=== PATIENT | female | born 1985 | race Caucasian/White ===

== ENCOUNTER 2018-04-10 01:25 | Emergency (ER) | payer MEDICAID, SELFPAY ==
[2018-04-10] MEDS ORDERED: BUPIVACAINE 0.5% PF 10 ML VIAL ONE (02:38)
[2018-04-10] MEDS ORDERED: LIDOCAINE 1% W/EPI 1:100,000 MDV 50 ML VIAL ONE (02:38)
[2018-04-10] MEDS ORDERED: NA CHLORIDE 0.9% 1,000 ML ONE (02:59)
[2018-04-10] MEDS ORDERED: CEFAZOLIN/SWI 1gm 1 GM/10 ML SYR ONE (03:06)
[2018-04-10 03:54] LABS: Urine Blood NEGATIVE (NEG); Urine Glucose 2+ (NEG); Urine Protein NEGATIVE (NEG); Urine Specific Gravity <1.005 (1.005-1.030); Urine pH 5.5 (5.0-7.0)
[2018-04-10] MEDS ORDERED: DOXYCYCLINE 100 MG CAP PO ONE (03:58)
--- NOTE | 2018-04-10 04:01 | EDPHYS ---
Physician Documentation [facility] Name: Diane Dacosta Age: 32 yrs Sex: Female : 1985 Arrival Date: 04/10/2018 Time: 01:26 Bed 20 Private MD: ED Physician Michael Timmons HPI: 04/10 02:30 This 32 yrs old Female presents to ER via Ambulatory with complaints of Foot cp Injury - fishhook on both. 02:30 The patient or guardian reports the patient has a suspected foreign body, of the cp anterior aspect left ankle and right Achilles . The reported likely foreign body is a fishhook. Onset: The symptoms/episode began/occurred just prior to arrival. 02:30 Current symptoms: pain, in the area of the foreign body. Treatment Prior to Arrival: cp none. 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 - Social history:: Smoking status: Patient uses tobacco products, smokes one-half pack cigarettes per day. - Ebola Screening: : Patient negative for fever greater than or equal to 101.5 degrees Fahrenheit, and additional compatible Ebola Virus Disease symptoms Patient denies exposure to infectious person Patient denies travel to an Ebola-affected area in the 21 days before illness onset. ROS: 02:35 Constitutional: Negative for body aches, chills, fever, poor PO intake. cp 02:35 Eyes: Negative for injury, pain, redness, and discharge. cp 02:35 Neck: Negative for pain with movement, pain at rest, stiffness. 02:35 Cardiovascular: Negative for chest pain, palpitations. 02:35 Respiratory: Negative for cough, wheezing. 02:35 Abdomen/GI: Negative for abdominal pain, vomiting, diarrhea, constipation. 02:35 Back: Negative for pain at rest, pain with movement. 02:35 Skin: Positive for of the right Achilles and anterior aspect of left ankle, fishhook in each lower extremity. 02:35 Neuro: Negative for altered mental status, headache, weakness. 02:35 All other systems are negative. Exam: 02:42 Constitutional: The patient appears alert, awake, non-toxic, well developed, well cp nourished, uncomfortable. 02:42 Head/Face: Normocephalic, atraumatic. cp 02:42 Eyes: Periorbital structures: appear normal, Conjunctiva: normal, no exudate, no injection, Lids and lashes: appear normal, bilaterally. 02:42 ENT: External ear(s): are unremarkable, Nose: is normal, Mouth: is normal, Posterior pharynx: is normal, airway is patent. 02:42 Chest/axilla: Inspection: normal. 02:42 Cardiovascular: Rate: tachycardic, Rhythm: regular. 02:42 Respiratory: the patient does not display signs of respiratory distress, Respirations: normal, no use of accessory muscles, no retractions, no splinting, no tachypnea. 02:42 Abdomen/GI: Exam negative for discomfort, distension, guarding, Inspection: abdomen appears normal. 02:42 Skin: noted large barbed fishhook times 2 located anterior aspect left ankle and right Achilles . Vital Signs: 01:30 BP 147 / 104; Pulse 138; Resp 95; Temp 98.6(O); Pulse Ox 96% on R/A; Weight 90.72 kg fc (R); Height 5 ft. 5 in. (165.10 cm) (R); Pain 10/10; 03:18 BP 121 / 99; Pulse 116; Resp 17 S; Pulse Ox 96% on R/A; jd3 01:30 Body Mass Index 33.28 (90.72 kg, 165.10 cm) Procedures: 03:32 Foreign Body Removal: a fishhook, from the right Achilles, by 18 gauge needle and cp manipulation. The patient tolerated the removal well. 03:33 Foreign Body Removal: a fishhook, from the left anterior aspect of left ankle, by push cp through. The patient tolerated the removal well. Performed wounds cleaned, irrigated and dressed by nursing staff. MDM: 02:27 Patient medically screened. cp 04:00 Data reviewed: vital signs, nurses notes, and as a result, I will discharge patient. cp 04:00 Counseling: I had a detailed discussion with the patient and/or guardian regarding: the cp historical points, exam findings, and any diagnostic results supporting the discharge/admit diagnosis, the need for outpatient follow up, a family practitioner, to return to the emergency department if symptoms worsen or persist or if there are any questions or concerns that arise at home. Response to treatment: the patient's symptoms have markedly improved after treatment, and as a result, I will discharge patient. Special discussion: I discussed in detail with the patient the higher chance of wound infection based on his presenting history. 04/10 02:46 Order name: Urine Dipstick--Ancillary (enter results); Complete Time: 04:01 rg2 04/10 04:01 Interpretation: Normal except: UGLUC 2+. cp 04/10 02:54 Order name: Test, Serum; Complete Time: 03:48 jd3 04/10 02:30 Order name: Urine Dipstick-Ancillary (obtain specimen); Complete Time: 02:45 cp 04/10 02:30 Order name: Urine Test (obtain specimen); Complete Time: 02:44 cp 04/10 02:31 Order name: Dressing - Wound; Complete Time: 03:17 cp 04/10 02:31 Order name: Gloves, Sterile; Complete Time: 02:45 cp 04/10 02:31 Order name: Setup Suture Tray; Complete Time: 02:45 cp 04/10 02:31 Order name: Misc. Order: betadine and guaze; Complete Time: 02:34 cp 04/10 02:54 Order name: IV; Complete Time: 03:02 jd3 Administered Medications: 02:54 Drug: Lidocaine-Epinephrine -1%: (1:100,000) 10 ml {Note: given by Shahab EMMANUEL} jd3 Volume: 20 ml; Route: Infiltration; 02:55 Drug: Marcaine (0.5 %) 5 ml {Note: given by Shahab EMMANUEL} Volume: 10 ml; Route: jd3 Infiltration; 03:02 Drug: NS 0.9% 1000 ml Route: IV; Rate: 1 bolus; Site: right antecubital; jd3 03:58 Follow up: Response: No adverse reaction; IV Status: Completed infusion; IV Intake: jd3 1000ml 03:08 Drug: Ancef 1 grams Route: IVPB; Site: right antecubital; jd3 03:17 Follow up: Response: No adverse reaction; IV Status: Completed infusion jd3 03:58 Drug: Doxycycline 200 mg Route: PO; jd3 04:13 Follow up: Response: No adverse reaction jd3 04:05 Drug: Tetanus-Diphtheria Toxoid Adult 0.5 ml {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 Exp: jd3 06/16/2020. Lot #: [id number]. } Route: IM; Site: left deltoid; 04:16 Follow up: Response: No adverse reaction jd3 Disposition: 04/10/18 04:00 Discharged to Home. Impression: Encounter for Removal of [place] from Left Ankle and Right Achilles. - Condition is Stable. - Discharge Instructions: Fish Hook Removal. - Prescriptions for Tylenol- Codeine #3 300-30 mg Oral Tablet - take 2 tablets by ORAL route every 6 hours As needed; 20 tablet. Doxycycline Monohydrate 100 mg Oral Tablet - take 1 tablet by ORAL route every 12 hours for 10 days; 20 tablet. - Medication Reconciliation Form, Thank You Letter, Antibiotic Education, Prescription Opioid Use form. - Follow up: Private Physician; When: 48 Hours; Reason: Wound Recheck. - Problem is new. - Symptoms have improved. Addendum: 04/11/2018 13:23 Co-signature as Attending Physician, Michael Timmons MD Available for consultation at p s1 all times. . Signatures: Dispatcher [employer] [facility] Marlen Vera RN RN Shahab Kuo PA PA cp Davies, Jonathon, RN RN jd3 Singer, Phillip, MD MD ps1 Corrections: (The following items were deleted from the chart) 04/10 02:54 02:54 TEST, SERUM+[id number].LAB.BRZ ordered. [facility] EDID 04:16 04:00 04/10/2018 04:00 Discharged to Home. Impression: Encounter for Removal of jd3 [place] from Left Ankle and Right Achilles. Condition is Stable. Discharge Instructions: Fish Hook Removal. Prescriptions for Tylenol-Codeine #3 300-30 mg Oral Tablet - take 2 tablets by ORAL route every 6 hours As needed; 20 tablet, Doxycycline Monohydrate 100 mg Oral Tablet - take 1 tablet by ORAL route every 12 hours for 10 days; 20 tablet. and Forms are Medication Reconciliation Form, Thank You Letter, Antibiotic Education, Prescription Opioid Use. Follow up: Private Physician; When: 48 Hours; Reason: Wound Recheck. Problem is new. Symptoms have improved. cp
--- NOTE | 2018-04-10 04:01 | ER ---
Nurse's Notes [facility] Name: Diane Dacosta Age: 32 yrs Sex: Female : 1985 Arrival Date: 04/10/2018 Time: 01:26 Bed 20 Private MD: Diagnosis: Encounter for Removal of [place] from Left Ankle and Right Achilles Presentation: 04/10 01:30 Presenting complaint: Patient states: that she was fishing and got tangled in the line. fc When in got pulled the hooks got her. She has one on the anterior lower left leg and one to posterior right just above the heel. Transition of care: patient was not received from another setting of care. Onset of symptoms was April 10, 2018 at 01:15. Risk Assessment: Do you want to hurt yourself or someone else? Patient reports no desire to harm self or others. Initial Sepsis Screen: Does the patient meet any 2 criteria? HR > 90 bpm. Yes Does the patient have a suspected source of infection? No. Patient's initial sepsis screen is negative. Care prior to arrival: None. 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 - Social history:: Smoking status: Patient uses tobacco products, smokes one-half pack cigarettes per day. - Ebola Screening: : Patient negative for fever greater than or equal to 101.5 degrees Fahrenheit, and additional compatible Ebola Virus Disease symptoms Patient denies exposure to infectious person Patient denies travel to an Ebola-affected area in the 21 days before illness onset. Screenin:48 Abuse screen: Denies threats or abuse. Nutritional screening: No deficits noted. fc Tuberculosis screening: No symptoms or risk factors identified. Fall Risk None identified. Assessment: 01:50 General: Appears uncomfortable, Behavior is cooperative, anxious. Pain: Complains of jd3 pain in right Achilles and anterior aspect of left ankle Pain currently is 10 out of 10 on a pain scale. Quality of pain is described as sharp, Aggravated by weight bearing. Neuro: Level of Consciousness is awake, alert, obeys commands, Oriented to person, place, time, situation. Cardiovascular: Heart tones S1 S2 present Capillary refill < 3 seconds Patient's skin is warm and dry. Rhythm is sinus tachycardia. Respiratory: Airway is patent Respiratory effort is even, unlabored, Respiratory pattern is regular, symmetrical, Breath sounds are clear bilaterally. GI: Abdomen is round Patient currently denies nausea, vomiting. : No signs and/or symptoms were reported regarding the genitourinary system. EENT: No signs and/or symptoms were reported regarding the EENT system. Derm: Skin is intact, Skin is dry, Skin is normal, Skin temperature is warm. Musculoskeletal: Circulation, motion, and sensation intact. Range of motion: intact in all extremities. Injury Description: Puncture sustained to right Achilles and anterior aspect of left ankle is 2 fishing hooks embedded in pt. 02:50 Reassessment: Patient appears in no apparent distress at this time. Patient and/or jd3 family updated on plan of care and expected duration. Pain level reassessed. Patient is alert, oriented x 3, equal unlabored respirations, skin warm/dry/pink. 03:20 Reassessment: Patient appears in no apparent distress at this time. Patient and/or jd3 family updated on plan of care and expected duration. Pain level reassessed. Patient is alert, oriented x 3, equal unlabored respirations, skin warm/dry/pink. 04:15 Reassessment: Patient appears in no apparent distress at this time. Patient and/or jd3 family updated on plan of care and expected duration. Pain level reassessed. Patient is alert, oriented x 3, equal unlabored respirations, skin warm/dry/pink. pt reported understanding of discharge instructions, even and steady gait upon discharge. Vital Signs: 01:30 BP 147 / 104; Pulse 138; Resp 95; Temp 98.6(O); Pulse Ox 96% on R/A; Weight 90.72 kg fc (R); Height 5 ft. 5 in. (165.10 cm) (R); Pain 10/10; 03:18 BP 121 / 99; Pulse 116; Resp 17 S; Pulse Ox 96% on R/A; jd3 01:30 Body Mass Index 33.28 (90.72 kg, 165.10 cm) fc ED Course: 01:26 Patient arrived in ED. am2 01:30 Arm band placed on Patient placed in an exam room, on a stretcher. 01:42 Jovany Parekh RN is Primary Nurse. jd3 01:47 Triage completed. 01:48 Patient has correct armband on for positive identification. Bed in low position. Call light in reach. 01:48 No provider procedures requiring assistance completed. fc 02:13 Wound care: to puncture located on right Achilles and anterior aspect of left ankle was jd3 cleaned with with saline poured over wounds to wash off sand and dried blood., Patient tolerated well. 02:27 Shahab Conley PA is PHCP. cp 02:27 Michael Tmimons MD is Attending Physician. cp 03:05 Inserted saline lock: 22 gauge in right antecubital area, using aseptic technique. ea Blood collected. 04:15 IV discontinued, intact, bleeding controlled, No redness/swelling at site. Pressure jd3 dressing applied. Administered Medications: 02:54 Drug: Lidocaine-Epinephrine -1%: (1:100,000) 10 ml {Note: given by Shahab JO.} jd3 Volume: 20 ml; Route: Infiltration; 02:55 Drug: Marcaine (0.5 %) 5 ml {Note: given by Shahab JO.} Volume: 10 ml; Route: jd3 Infiltration; 03:02 Drug: NS 0.9% 1000 ml Route: IV; Rate: 1 bolus; Site: right antecubital; jd3 03:58 Follow up: Response: No adverse reaction; IV Status: Completed infusion; IV Intake: jd3 1000ml 03:08 Drug: Ancef 1 grams Route: IVPB; Site: right antecubital; jd3 03:17 Follow up: Response: No adverse reaction; IV Status: Completed infusion jd3 03:58 Drug: Doxycycline 200 mg Route: PO; jd3 04:13 Follow up: Response: No adverse reaction jd3 04:05 Drug: Tetanus-Diphtheria Toxoid Adult 0.5 ml {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 Exp: jd3 06/16/2020. Lot #: [id number]. } Route: IM; Site: left deltoid; 04:16 Follow up: Response: No adverse reaction jd3 Intake: 03:58 IV: 1000ml; Total: 1000ml. jd3 Outcome: 04:00 Discharge ordered by . cp 04:15 Discharged to home ambulatory, with family. jd3 04:15 Condition: stable 04:15 Discharge instructions given to patient, Instructed on discharge instructions, follow up and referral plans. medication usage, Demonstrated understanding of instructions, follow-up care, medications, Prescriptions given X 2. 04:16 Patient left the ED. jd3 Signatures: Marlen Vera RN RN Shahab Kuo PA PA cp Moreno, Amanda am2 Antunez, Elena, RN RN Jovany Woods RN RN jyarely Corrections: (The following items were deleted from the chart) 04:13 04:12 Tetanus-Diphtheria Toxoid Adult 0.5 ml IM in left deltoid Application Development Director: [employer] jd3 Biologic Lot: [id number] Exp: 06/16/2020 jd3
[2018-04-10] MEDS ORDERED: TETANUS & DIPHTHERIA TOX,ADULT 0.5 ML VIAL ONE (04:05)
== END 2018-04-10 04:16 | disposition home or self-care (01) ==
LOC: ER 01:25
PROC: 0JCQ0ZZ Extirpation of Matter from Right Foot Subcutaneous Tissue and Fascia, Open Approach (ICD-10-PCS; principal; 2018-04-10)
PROC: 0JCR3ZZ Extirpation of Matter from Left Foot Subcutaneous Tissue and Fascia, Percutaneous Approach (ICD-10-PCS; 2018-04-10)
DX: S91.042A Puncture wound with foreign body, left ankle, initial encounter (principal); S91.041A Puncture wound with foreign body, right ankle, initial encounter; E11.9 Type 2 diabetes mellitus without complications; F17.210 Nicotine dependence, cigarettes, uncomplicated; W26.8XXA Contact with other sharp object(s), not elsewhere classified, initial encounter; Y93.89 Activity, other specified; Y92.9 Unspecified place or not applicable; Y99.9 Unspecified external cause status; Z23 Encounter for immunization
CPT/HCPCS: 36415; 81003; 84703; 90714; 96361; 96374; 99284; J0690; J7030

== ENCOUNTER 2024-11-23 17:45 | Emergency (ER) | payer BC, SELFPAY ==
--- OUTSIDE RECORDS SUMMARY | 2024-11-23 17:52 | XMS REPORT | Continuity of Care Document ---
Author Name Unknown Address [address] [facility] [address] [place] [address] [facility] Address [address] [facility] [address] [place] [address] Care Team Providers Care Care Asst Name Role Phone Juliet Guevara MD Primary Care Physician [phone] Juliet Guevara MD Attending Clinician + [phone] KYLIE BENTLEY Attending Clinician Unavailable Kylie Mays Attending Clinician +[phone] Akash Paz MD Attending Clinician + [phone] Juliet Guevara MD Attending Clinician + Akash Paz MD Attending Clinician + JULIET GUEVARA Attending Clinician Unavailable Kylie Mays Attending Clinician [phone] Britney Schumacher MD Attending Clinician +[phone] Corby Collins MD Attending Clinician +[phone] BRITNEY SCHUMACHER Attending Clinician Unavailable Lin Rivera MD Attending Clinician + [phone] Lab, Ang - Db Attending Clinician Unavailable Katiana Castle MD Attending Clinician [phone] Unknown, Attending Attending Clinician Unavailab KATIANA Park Attending Clinician Unavailable Jade Walsh Attending Clinician +[phone] JADE AHUMADA Attending Clinician Unavailable LIN RIVERA Attending Clinician Unaclaudia lopez Doctor Unassigned, Blende Attending Clinician CORBY Abdi Attending Clinician Unavailabl e Alison MA, Moriah L Attending Clinician Unavailab SERGIO Gusman Attending Clinician Unavail able NICOLETTE FITCH Attending Clinician Unavailable AME LCUAS Attending Clinician Unavailable Ame Lucas OD Attending Clinician [phone] Radha Paredes LVN Attending Clinician Unaclaudia Baker [facility] Attending Clinician + [facility] Attending Clinician Unavailable Dago Lopez MD Attending Clinician [phone] DAGO LOPEZ Attending Clinician Unavailable CHRISTINE ANDERSON Attending Clinician Unavailable Christine Anderson MD Attending Clinician [phone] Matt Kaur DNP Attending Clinician +[phone] FADI HUBBARD Attending Clinician Unavailab Fadi Bass Attending Clinician + [phone] CECELIA WEBB Attending Clinician Unavailable Cecelia Webb MD Attending Clinician [phone] [facility] Attending Clinician Unavailable DOMINGO YOUSIF Attending Clinician Unavailable Domingo Chapman Attending Clinician + [phone] MIKEY VIDAL Attending Clinician Unavail able Mikey Vidal MD Attending Clinician [phone] Faculty, [facility] Attending Clinician UnaSAGE Rivas Attending Clinician Unavailable Joey Vanessa MD Attending Clinician +[phone] JOEY VANESSA Attending Clinician Unavailable TAWANA CERVANTES Attending Clinician Unavailab Tawana Hoover DO Attending Clinician + [phone] RHONDA VASQUEZ Attending Clinician Unavailable Vasquez PAC, Rhonda S Attending Clinician +[phone] REJI CASTELLANOS Attending Clinician Unavailable MARLINE CERVANTES Attending Clinician UnavailBERNY Del Valle Attending Clinician Unavailable Breny Woodard Attending Clinician +[phone] Reji Castellanos MD Attending Clinician +[phone] BRITNEY SCHUMACHER Admitting Clinician Unavailable CHRISTINE ANDERSON Admitting Clinician Unavailable Christine Anderson MD Admitting Clinician +[phone] DOMINGO YOUSIF Admitting Clinician Unavailable REJI CASTELLANOS Admitting Clinician Unavailable Payers Payer Name Policy Type Policy Number Effective Date Expirati on Date Source MEDICAID PENDING PENDING 2021 00:00:00 [place] [id number] 2021 00:00:00 [facility] [id number] 2019 00:00:00 Problems Condition Name Condition Details Condition Category Status Onset Date Resolution Date Last Treatment Date Treating Clinician Comments Source Anxiety Anxiety Problem Active 2- 00:00: 00 [facility] Dysmenorrh ea Dysmenorrh ea Problem Active 2- 00:00: 00 [facility] Menometror rhagia Menometror rhagia Problem Active - 00:00: 00 [facility] Heartburn Heartburn Problem Active - 00:00: 00 [facility] Iron deficiency anemia due to blood loss Iron Deficiency Anemia Due to Blood Loss Problem Active 2- 00:00: 00 [facility] Uterine leiomyoma Uterine Leiomyoma Problem Active 2-05 00:00: 00 [facility] Acquired hypothyroi dism Acquired Hypothyroi dism Problem Active 2-05 00:00: 00 [facility] Hypothyroi dism Hypothyroi dism Problem Active 2-05 00:00: 00 [facility] Diabetes mellitus Diabetes Mellitus Problem Active 2-05 00:00: 00 [facility] Type 2 diabetes mellitus Type 2 Diabetes Mellitus Problem Active 2-05 00:00: 00 [facility] Upper respirator y tract infection, unspecifie d type Upper respirator y tract infection, unspecifie d type Disease Active 2023-10 1-06 00:00: 00 [facility] Uterine leiomyoma, unspecifie d location Uterine leiomyoma, unspecifie d location Disease Active 2-20 00:00: 00 [facility] Intramural leiomyoma of uterus Intramural leiomyoma of uterus Disease Active 2-20 00:00: 00 [facility] Diabetes mellitus Diabetes mellitus Disease Active 605 00:00: 00 [facility] DKA (diabetic ketoacidos es) DKA (diabetic ketoacidos es) Disease Active 2016-10 0-15 00:00: 00 [facility] General counseling for prescripti on of oral contracept michele General counseling for prescripti on of oral contracept michele Disease Active 03-11 00:00: 00 [facility] Morbid obesity Morbid obesity Disease Active 03-11 00:00: 00 [facility] History of hypothyroi dism History of hypothyroi dism Disease Active 2014-10 1- 00:00: 00 [facility] Depression Depression Disease Active 07-04 00:00: 00 [facility] Diabetes mellitus complicati ng , antepartum Diabetes mellitus complicati ng , antepartum Disease Active 2011-10 00:00: 00 Overview: Formattin g of this note might be different from the original. 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 [facility] Complete Complete Disease Resolve d 2021-0 3-17 00:00: 00 2022-02-26 00:00:00 2022-02-26 14:40:09 [facility] Vaginal bleeding before 22 weeks gestation Vaginal bleeding before 22 weeks gestation Disease Resolve d 2021-0 3-16 00:00: 00 2022-02-26 00:00:00 2022-02-26 14:45:27 [facility] Prior with demise Prior with demise Disease Resolve d 2015-0 3-20 00:00: 00 2022-02-26 00:00:00 2022-02-26 14:45:57 [facility] Previous delivery affecting , antepartum Previous delivery affecting , antepartum Disease Resolve d 0 9-17 00:00: 00 2022-02-26 00:00:00 2022-02-26 14:46:01 [facility] Multiparit y Multiparit y Disease Resolve d 2011-10 2-01 00:00: 00 2022-02-26 00:00:00 2022-02-26 14:46:02 [facility] Spontaneou s Spontaneou s Disease Resolve d 0 3-17 00:00: 00 2022-01-18 00:00:00 2022-01-18 06:10:17 [facility] Threatened Threatened Disease Resolve d 0 3-16 00:00: 00 2022-01-18 00:00:00 2022-01-18 06:10:22 [facility] Hypothyroi d in , antepartum , first trimester Hypothyroi d in , antepartum , first trimester Disease Resolve d 2014-10 1-13 00:00: 00 2022-01-18 00:00:00 2022-01-18 06:10:28 [facility] 37 weeks gestation of 37 weeks gestation of Disease Resolve d 0 3-21 00:00: 00 2016-03-11 00:00:00 2016-03-11 15:30:24 [facility] Abnormal ultrasound Abnormal ultrasound Disease Resolve d 0 3-10 00:00: 00 2016-03-11 00:00:00 2022-05-03 00:39:50 [facility] Low lying placenta without hemorrhage , antepartum Low lying placenta without hemorrhage , antepartum Disease Resolve d 2014-10 2-01 00:00: 00 2016-03-11 00:00:00 2022-05-03 00:38:41 [facility] Headache in , antepartum , second trimester Headache in , antepartum , second trimester Disease Resolve d 2014-10 00:00: 00 2016-03-11 00:00:00 2016-03-11 15:30:31 [facility] Gestationa l diabetes mellitus, antepartum Gestationa l diabetes mellitus, antepartum Disease Resolve d 2014-10 00:00: 00 2016-03-11 00:00:00 2022-05-03 00:37:56 [facility] Obesity complicati ng , childbirth , or puerperium , antepartum Obesity complicati ng , childbirth , or puerperium , antepartum Disease Resolve d 07-04 00:00: 00 2016-03-11 00:00:00 2022-05-03 00:37:40 [facility] History of gestationa l diabetes History of gestationa l diabetes Disease Resolve d 03-16 00:00: 00 2015-12-29 00:00:00 2015-12-29 18:50:11 [facility] Glucose tolerance test abnormal Glucose tolerance test abnormal Disease Resolve d 07-09 00:00: 00 2015-08-13 00:00:00 2022-05-03 00:37:44 [facility] Need for prophylact ic vaccinatio n and inoculatio n against influenza Need for prophylact ic vaccinatio n and inoculatio n against influenza Disease Resolve d 07-04 00:00: 00 2015-08-13 00:00:00 2015-08-13 08:24:36 [facility] Absence of menstruati on Absence of menstruati on Disease Resolve d 05-28 00:00: 00 2015-08-13 00:00:00 2015-08-13 08:24:01 [facility] Encounter for routine gynecologi zulema examinatio n Encounter for routine gynecologi zulema examinatio n Disease Resolve d 03-16 00:00: 00 2015-08-13 00:00:00 2022-05-03 00:36:12 [facility] Need for MMR vaccine Need for MMR vaccine Disease Resolve d 03-16 00:00: 00 2015-07-04 00:00:00 2015-07-04 09:12:31 [facility] Obesity Obesity Disease Resolve d 2011-10 00:00: 00 2015-07-04 00:00:00 2015-07-04 09:12:14 [facility] delivery delivered delivery delivered Disease Resolve d 2011-10 00:00: 00 2015-03-16 00:00:00 2015-03-16 18:42:41 [facility] Previous delivery, antepartum condition or complicati on Previous delivery, antepartum condition or complicati on Disease Resolve d 2011-10 00:00: 00 2015-03-16 00:00:00 2015-03-16 18:42:45 [facility] Streptococ cus B carrier or suspected carrier Streptococ cus B carrier or suspected carrier Disease Resolve d 2011-10 00:00: 00 2015-03-16 00:00:00 2015-03-16 18:42:49 [facility] Antepartum hypertensi on Antepartum hypertensi on Disease Resolve d 2011-10 00:00: 00 2015-03-16 00:00:00 2022-05-03 00:22:26 [facility] Allergies, Adverse Reactions, Alerts Allergy Name Allergy Type Status Severity Reaction(s) Onset Date Inactive Date Treating Clinician Comments Source NO KNOWN ALLERGIE S Drug Class Active [facility] Social History Social Habit Start Date Stop Date Quantity Comments Source History SDOH Alcohol Frequency [facility] History SDOH [facility] SDOH Alcohol Binge [facility] Gender identity [facility] Alcoholic beverage intake 2024-08-23 00:00:00 2024-08-23 00:00:00 Ex-drinker (finding) [facility] Cigarettes smoked current (pack per day) - Reported 2024-02-22 00:00:00 2024-02-22 00:00:00 [facility] Cigarette pack-years 2024-02-22 00:00:00 2024-02-22 00:00:00 [facility] Tobacco use and exposure 2024-02-22 00:00:00 2024-02-22 00:00:00 Smokeless tobacco non-user [facility] Alcohol intake 2024-02-18 00:00:00 2024-02-18 00:00:00 Ex-drinker (finding) [facility] History of Social function 2024-01-07 00:00:00 2024-01-07 00:00:00 [facility] Exposure to SARS-CoV-2 (event) 2023-01-22 00:00:00 2023-02-01 13:45:00 Not sure [facility] History of tobacco use 2007-03-22 00:00:00 2021-11-21 00:00:00 Cigarette Smoker [facility] Alcohol Comment 2017-08-01 00:00:00 2017-08-01 00:00:00 social drinker [facility] Sex assigned at 1985 00:00:00 1985 00:00:00 [facility] Smoking Status Start Date Stop Date Source Never Smoker [facility] Ex-smoker 2024-02-22 00:00:00 2024-02-22 [facility] Medications Ordered Medication Name Filled Medication Name Start Date Stop Date Current Medication? Ordering Clinician Indication Dosage Frequency Signature (SIG) Comments Components Source BUSPIRONE 5 mg tablet - 00:00: 00 Yes [id number] TAKE 1 TABLET BY MOUTH THREE TIMES A DAY NEEDED FOR ANXIETY [facility] pantoprazol e 40 mg EC tablet 2023-10 00:00: 00 Yes [id number] 40mg TAKE 1 TABLET BY MOUTH EVERY DAY IN THE MORNING [facility] gabapentin 100 mg capsule 2023-10 00:00: 00 Yes [id number] TAKE 1 TO 3 CAPSULES BY MOUTH AT BEDTIME NEEDED FOR RLS [facility] fluticasone propionate 50 mcg/actuati on nasal spray 2023-10 00:00: 00 Yes [id number] USE TWO SPRAYS IN EACH NOSTRIL DAILY FOR A WEEK, THEN USE ONE SPRAY IN EACH NOSTRIL DAILY [facility] levothyroxi ne 125 mcg tablet 2023-10 00:00: 00 Yes [id number] 125ug TAKE 1 TABLET BY MOUTH EVERY DAY IN THE MORNING [facility] propranoloL 10 mg tablet 2023-10 00:00: 00 Yes [id number] TAKE 1 TABLET BY MOUTH TWICE A DAY IN THE MORNING AND IN THE EVENING [facility] busPIRone 5 mg tablet 2023-10 00:00: 00 11-17 00:00 :00 No [id number] TAKE 1 TABLET BY MOUTH THREE TIMES A DAY NEEDED FOR ANXIETY [facility] levothyroxi ne 125 mcg tablet 2023-10 00:00: 00 10-16 00:00 :00 No [id number] 125ug TAKE 1 TABLET BY MOUTH EVERY DAY IN THE MORNING [facility] albuterol 90 mcg/actuati on inhaler 2023-10 00:00: 00 Yes [id number] 2{puff} INHALE 2 PUFFS EVERY 6 (SIX) HOURS NEEDED FOR WHEEZING, SHORTNESS OF BREATH OR CHEST TIGHTNESS. [facility] methylPREDN ISolone (MEDROL, ARIAS,) 4 mg tablets 2023-10 00:00: 00 08-29 05:59 :00 No [id number] Take by mouth SEE-INSTRU CTIONS for 5 days. follow package directions [facility] azelastine 137 mcg (0.1 %) nasal spray 2023-10 00:00: 00 Yes [id number] 1{spray } USE 1 SPRAY IN EACH NOSTRIL IN THE MORNING AND 1 SPRAY IN THE EVENING. USE IN EACH NOSTRIL DIRECTED [facility] METFORMIN ER 500 mg 24 hr tablet 07-06 00:00: 00 Yes [id number] 500mg TAKE 1 TABLET BY MOUTH IN THE MORNING AND IN THE EVENING [facility] PROPRANOLOL 10 mg tablet 07-06 00:00: 00 10-16 00:00 :00 No [id number] 10mg TAKE 1 TABLET BY MOUTH IN THE MORNING AND IN THE EVENING [facility] GABAPENTIN 100 mg capsule 06-27 00:00: 00 10-16 00:00 :00 No [id number] TAKE 1 TO 3 CAPSULES BY MOUTH AT BEDTIME NEEDED FOR OTHER (RLS) [facility] PANTOPRAZOL E 40 mg EC tablet 06-27 00:00: 00 10-16 00:00 :00 No [id number] 40mg TAKE 1 TABLET BY MOUTH EVERY DAY IN THE MORNING [facility] BUSPIRONE 5 mg tablet 05-16 00:00: 00 10-16 00:00 :00 No [id number] TAKE 1 TABLET BY MOUTH THREE TIMES A DAY NEEDED FOR ANXIETY [facility] fluticasone propionate 50 mcg/actuati on nasal spray 05-15 00:00: 00 10-16 00:00 :00 No [id number] USE TWO SPRAYS IN EACH NOSTRIL DAILY FOR A WEEK, THEN USE ONE SPRAY IN EACH NOSTRIL DAILY [facility] albuterol 90 mcg/actuati on inhaler 05-08 00:00: 00 08-29 00:00 :00 No [id number] 2{puff} Inhale 2 Puffs every 6 (six) hours as needed for Wheezing, Shortness of Breath or Chest tightness. [facility] gabapentin 100 mg capsule 05-08 00:00: 00 06-27 00:00 :00 No [id number] 100mg Take 1-3 capsules by mouth at bedtime as needed for Other (RLS). [facility] busPIRone 5 mg tablet 04-21 00:00: 00 05-16 00:00 :00 No [id number] 5mg Take 1 tablet by mouth 3 (three) times daily as needed for Other (Anxiety). [facility] gabapentin 100 mg capsule 04-21 00:00: 00 05-07 00:00 :00 No [id number] 100mg Take 1-3 capsules by mouth at bedtime as needed for Other (RLS). [facility] dulaglutide (TRULICITY) 1.5 mg/0.5 mL PnIj 03-15 00:00: 00 Yes [id number] 1.5mg inject 1 Pen under the skin weekly. [facility] Insulin Glargine (LANTUS SOLOSTAR U-100 INSULIN) 100 unit/mL (3 mL) injection 03-10 00:00: 00 Yes [id number] 28U inject 28 Units under the skin daily before breakfast. [facility] levothyroxi ne 125 mcg tablet 03-01 00:00: 00 09-11 00:00 :00 No [id number] 125ug Take 1 tablet by mouth every morning. [facility] gabapentin 100 mg capsule 02-23 00:00: 00 04-21 00:00 :00 No [id number] 100mg Take 1-3 capsules by mouth at bedtime as needed for Other (RLS). [facility] azelastine 137 mcg (0.1 %) nasal spray 02-17 00:00: 08-21 00:00 :00 No [id number] 1{spray } Use 1 [place] in each nostril in the morning and 1 [place] in the evening. Use in each nostril as directed [facility] fluticasone propionate 50 mcg/actuati on nasal spray 02-17 00:00: 00 05-15 00:00 :00 No [id number] Use two sprays in each nostril daily for a week, then use one spray in each nostril daily [facility] albuterol 90 mcg/actuati on inhaler 02-17 00:00: 00 05-07 00:00 :00 No [id number] 2{puff} Inhale 2 Puffs every 6 (six) hours as needed for Wheezing, Shortness of Breath or Chest tightness. [facility] busPIRone 5 mg tablet 02-17 00:00: 00 04-21 00:00 :00 No [id number] 5mg Take 1 tablet by mouth 3 (three) times daily as needed for Other (Anxiety). [facility] gabapentin 100 mg capsule 01-24 00:00: 00 02-22 00:00 :00 No [id number] 100mg Take 1-3 capsules by mouth at bedtime as needed for Other (RLS). [facility] metformin ER 500 mg 24 hr tablet 01-16 00:00: 00 07-06 00:00 :00 No [id number] 500mg Take 1 tablet by mouth in the morning and 1 tablet in the evening. [facility] Insulin Glargine (LANTUS SOLOSTAR U-100 INSULIN) 100 unit/mL (3 mL) injection 01-16 00:00: 00 03-10 00:00 :00 No [id number] 28U inject 28 Units under the skin daily before breakfast. [facility] PROPRANOLOL 10 mg tablet 01-12 00:00: 00 07-06 00:00 :00 No [id number] TAKE 1 TABLET BY MOUTH IN THE MORNING AND 1 TABLET BY MOUTH IN THE EVENING [facility] mupirocin 2 % ointment 15 00:00: 00 02-17 00:00 :00 No [id number] Apply to area(s) 3 (three) times daily. [facility] cephALEXin 500 mg capsule 15 00:00: 00 01-07 04:59 :00 No [id number] 500mg Take 1 capsule by mouth 4 (four) times daily for 7 days. [facility] PANTOPRAZOL E 40 mg EC tablet 14 00:00: 00 Yes [id number] 40mg TAKE 1 TABLET BY MOUTH EVERY DAY IN THE MORNING [facility] ciclopirox 8 % solution 12-29 00:00: 00 02-17 00:00 :00 No [id number] Apply to area(s) at bedtime. Apply to Nails. [facility] gabapentin 100 mg capsule 14 00:00: 00 01-21 00:00 :00 No [id number] 100mg Take 1-3 capsules by mouth at bedtime as needed for Other (RLS). [facility] Insulin [place], Disposable, (BD ULTRAFINE III MINI PEN) 31 gauge x 3/16" Ndle 223 00:00: 00 Yes USE DIRECTED ONCE A DAY [facility] insulin syr/ndl U100 half chasidy 0.3 mL 29 gauge x 1/2" Syrg 222 00:00: 00 Yes [id number] Use as directed [facility] escitalopra m oxalate (LEXAPRO) 10 mg tablet 12-07 00:00: 00 Yes [id number] 10mg Take 1 tablet by mouth in the morning. [facility] propranoloL 10 mg tablet 12-07 00:00: 00 01-12 00:00 :00 No [id number] 10mg Take 1 tablet by mouth in the morning and 1 tablet in the evening. [facility] pantoprazol e 40 mg EC tablet 12-07 00:00: 00 12-29 00:00 :00 No [id number] 40mg Take 1 tablet by mouth in the morning. [facility] gabapentin 100 mg capsule 12-02 00:00: 00 12-29 00:00 :00 No [id number] 100mg Take 1-3 capsules by mouth at bedtime as needed for Other (RLS). [facility] gabapentin 100 mg capsule 2022-10 00:00: 00 12-01 00:00 :00 No [id number] 100mg Take 1-3 capsules by mouth at bedtime as needed for Other (RLS). [facility] levothyroxi ne 125 mcg tablet 2022-10 00:00: 00 03-01 00:00 :00 No [id number] 125ug Take 1 tablet by mouth every morning. [facility] metformin ER 500 mg 24 hr tablet 2022-10 00:00: 00 01-16 00:00 :00 No [id number] 500mg Take 1 tablet by mouth in the morning and 1 tablet in the evening. [facility] Insulin Glargine (LANTUS SOLOSTAR U-100 INSULIN) 100 unit/mL (3 mL) injection 2022-10 0 00:00: 00 01-16 00:00 :00 No [id number] 28U inject 28 Units under the skin daily before breakfast. [facility] bromphenira mine-pseudo ephedrine-D M (BROMFED DM) 2-30-10 mg/5 mL syrup 07-12 00:00: 00 Yes [id number] 10mL Take 10 mL by mouth 4 (four) times daily as needed for Congestion /Allergies . [facility] albuterol 90 mcg/actuati on inhaler 07-12 00:00: 00 12-07 00:00 :00 No [id number] 2{puff} Inhale 2 Puffs every 6 (six) hours as needed for Wheezing or Shortness of Breath. [facility] inhalat.spa cing dev,large mask (BREATHERIT E SPACER-MASK ,ADULT) Spcr 07-01 00:00: 00 Yes [id number] 1{each} 1 Each every 6 (six) hours as needed for Other (Shortness of breath; use as directed with inhaler). May substitute [facility] gabapentin 100 mg capsule 07-01 00:00: 00 09-29 00:00 :00 No [id number] 100mg Take 1-3 capsules by mouth at bedtime as needed for Other (RLS). [facility] bromphenira mine-pseudo ephedrine-D M (BROMFED DM) 2-30-10 mg/5 mL syrup 07-01 00:00: 00 07-08 22:29 :48 No [id number] 10mL Take 10 mL by mouth 4 (four) times daily as needed for Congestion /Allergies . [facility] albuterol 90 mcg/actuati on inhaler 07-01 00:00: 00 07-08 22:29 :48 No [id number] 2{puff} Inhale 2 Puffs every 6 (six) hours as needed for Wheezing or Shortness of Breath. [facility] metformin ER 500 mg 24 hr tablet 0 7- 00:00: 00 08-17 00:00 :00 No [id number] 500mg Take 1 tablet by mouth in the morning and 1 tablet in the evening. [facility] dulaglutide (TRULICITY) 1.5 mg/0.5 mL PnIj 4-17 00:00: 00 03-13 00:00 :00 No [id number] 1.5mg inject 1 Pen under the skin weekly. [facility] azithromyci n 250 mg tablet 4-14 00:00: 00 12-07 00:00 :00 No [id number] Take 500 mg PO day 1, then 250 mg PO days 2 to 5 [facility] BD ULTRAFINE III MINI PEN 31 gauge x 3/16" Ndle 3-22 00:00: 00 Yes USE DIRECTED ONCE A DAY [facility] BD ULTRAFINE III MINI PEN 31 gauge x 3/16" Ndle 0 3-22 00:00: 00 12-10 00:00 :00 No USE DIRECTED ONCE A DAY [facility] dulaglutide (TRULICITY) 0.75 mg/0.5 mL PnIj 0 2-17 00:00: 00 02-01 00:00 :00 No [id number] .75mg inject 1 Pen under the skin weekly. May increase to 1.5 mg q week after 4 weeks [facility] Insulin Glargine (LANTUS SOLOSTAR U-100 INSULIN) 100 unit/mL (3 mL) injection 2021-10- 00:00: 00 Yes [id number] 28U inject 28 Units under the skin daily before breakfast. [facility] Insulin [place], Disposable, (LITE TOUCH INSULIN PEN NEEDLES) 31 gauge x 1/4" Ndle 2021-10- 00:00: 00 Yes [id number] Use as directed [facility] Insulin Glargine (LANTUS SOLOSTAR U-100 INSULIN) 100 unit/mL (3 mL) injection 2021-10 00:00: 00 08-16 00:00 :00 No [id number] 28U inject 28 Units under the skin daily before breakfast. [facility] metformin ER 500 mg 24 hr tablet 2021-10 00:00: 00 04-16 00:00 :00 No [id number] 500mg Take 1 tablet by mouth in the morning and 1 tablet in the evening. [facility] Insulin [place], Disposable, (LITE TOUCH INSULIN PEN NEEDLES) 31 gauge x 1/4" Ndle 2021-10 00:00: 00 09-25 00:00 :00 No [id number] Use as directed [facility] metformin ER 500 mg 24 hr tablet 2021-10 024 00:00: 00 09-25 00:00 :00 No [id number] 500mg Take 1 tablet by mouth daily with breakfast. [facility] Insulin Glargine (LANTUS SOLOSTAR U-100 INSULIN) 100 unit/mL (3 mL) injection 2021-10 00:00: 00 09-25 00:00 :00 No [id number] 30U inject 30 Units under the skin daily before breakfast. [facility] Insulin Glargine (LANTUS SOLOSTAR U-100 INSULIN) 100 unit/mL (3 mL) injection 2021-10 0 00:00: 00 09-25 00:00 :00 No [id number] 30U inject 30 Units under the skin daily before breakfast. [facility] hydrocortis one 2.5 % cream 06-29 00:00: 00 07-07 04:59 :00 No [id number] Apply to affected area(s) 2 (two) times daily for 7 days. [facility] ampicillin 500 mg capsule 06-23 00:00: 00 06-29 00:00 :00 No [id number] 500mg Take 1 capsule by mouth every 6 (six) hours. [facility] levothyroxi ne 125 mcg tablet 06-16 00:00: 00 08-17 00:00 :00 No [id number] 125ug Take 1 tablet by mouth every morning. [facility] Insulin [place], Disposable, (LITE TOUCH INSULIN PEN NEEDLES) 31 gauge x 1/4" Ndle 06-15 00:00: 00 09-16 00:00 :00 No [id number] Use as directed [facility] Insulin [place], Disposable, (LITE TOUCH INSULIN PEN NEEDLES) 31 gauge x 1/4" Ndle 06-15 00:00: 00 09-16 00:00 :00 No [id number] Use as directed [facility] Insulin Glargine (LANTUS SOLOSTAR U-100 INSULIN) 100 unit/mL (3 mL) injection 06-15 00:00: 00 08-03 00:00 :00 No [id number] 10U inject 10 Units under the skin daily before breakfast. [facility] Nitrofurant oin&Nit. Macrocryst (MACROBID) 100 mg capsule 06-15 00:00: 00 06-29 00:00 :00 No [id number] 100mg Take 1 capsule by mouth in the morning and 1 capsule in the evening. [facility] insulin syr/ndl U100 half chasidy 0.3 mL 29 gauge x 1/2" Syrg 308 00:00: 00 12-09 00:00 :00 No [id number] Use as directed [facility] Lantus Solostar U-100 Insulin Lantus Solostar U-100 Insulin No Lantus Solostar U-100 Insulin [facility] levothyroxi ne levothyroxi ne No levothyrox ine [facility] metformin metformin No metformin [facility] propranolol propranolol No pr opranolo l [facility] Immunizations Ordered Immunization Name Filled Immunization Name Date Status Comments Source TDAP 2015-12-23 00:00:00 Completed [facility] TDAP 2015-12-23 00:00:00 Completed [facility] TDAP 2015-12-23 00:00:00 Completed [facility] TDAP 2015-12-23 00:00:00 Completed [facility] TDAP 2015-12-23 00:00:00 Completed [facility] TDAP 2015-12-23 00:00:00 Completed [facility] TDAP 2015-12-23 00:00:00 Completed [facility] TDAP 2015-12-23 00:00:00 Completed [facility] TDAP 2015-12-23 00:00:00 Completed [facility] TDAP 2015-12-23 00:00:00 Completed [facility] TDAP 2015-12-23 00:00:00 Completed [facility] TDAP 2015-12-23 00:00:00 Completed [facility] TDAP 2015-12-23 00:00:00 Completed [facility] TDAP 2015-12-23 00:00:00 Completed [facility] TDAP 2015-12-23 00:00:00 Completed [facility] TDAP 2015-12-23 00:00:00 Completed [facility] TDAP 2015-12-23 00:00:00 Completed [facility] TDAP 2015-12-23 00:00:00 Completed [facility] Influenza Virus Vaccine Quad IM 3+ YRS 2015-07-04 00:00:00 Completed [facility] Influenza Virus Vaccine Quad IM 3+ YRS 2015-07-04 00:00:00 Completed [facility] Influenza Virus Vaccine Quad IM 3+ YRS 2015-07-04 00:00:00 Completed [facility] Influenza Virus Vaccine Quad IM 3+ YRS 2015-07-04 00:00:00 Completed Influenza Virus Vaccine Quad IM 3+ YRS 2015-07-04 00:00:00 Completed [facility] Influenza Virus Vaccine Quad IM 3+ YRS 2015-07-04 00:00:00 Completed [facility] Influenza Virus Vaccine Quad IM 3+ YRS 2015-07-04 00:00:00 Completed [facility] Influenza Virus Vaccine Quad IM 3+ YRS 2015-07-04 00:00:00 Completed [facility] Influenza Virus Vaccine Quad IM 3+ YRS 2015-07-04 00:00:00 Completed [facility] Influenza Virus Vaccine Quad IM 3+ YRS 2015-07-04 00:00:00 Completed [facility] Influenza Virus Vaccine Quad IM 3+ YRS 2015-07-04 00:00:00 Completed [facility] Influenza Virus Vaccine Quad IM 3+ YRS 2015-07-04 00:00:00 Completed [facility] Influenza Virus Vaccine Quad IM 3+ YRS 2015-07-04 00:00:00 Completed [facility] Influenza Virus Vaccine Quad IM 3+ YRS 2015-07-04 00:00:00 Completed [facility] Influenza Virus Vaccine Quad IM 3+ YRS 2015-07-04 00:00:00 Completed [facility] Influenza Virus Vaccine Quad IM 3+ YRS 2015-07-04 00:00:00 Completed [facility] Influenza Virus Vaccine Quad IM 3+ YRS 2015-07-04 00:00:00 Completed [facility] MMR 2015-03-14 00:00:00 Completed [facility] MMR 2015-03-14 00:00:00 Completed [facility] MMR 2015-03-14 00:00:00 Completed [facility] MMR 2015-03-14 00:00:00 Completed [facility] MMR 2015-03-14 00:00:00 Completed [facility] MMR 2015-03-14 00:00:00 Completed [facility] MMR 2015-03-14 00:00:00 Completed [facility] MMR 2015-03-14 00:00:00 Completed [facility] MMR 2015-03-14 00:00:00 Completed [facility] MMR 2015-03-14 00:00:00 Completed [facility] MMR 2015-03-14 00:00:00 Completed [facility] MMR 2015-03-14 00:00:00 Completed [facility] MMR 2015-03-14 00:00:00 Completed [facility] MMR 2015-03-14 00:00:00 Completed [facility] MMR 2015-03-14 00:00:00 Completed [facility] MMR 2015-03-14 00:00:00 Completed [facility] MMR 2015-03-14 00:00:00 Completed [facility] TDAP 2011-10-18 00:00:00 Completed [facility] TDAP 2011-10-18 00:00:00 Completed [facility] TDAP 2011-10-18 00:00:00 Completed [facility] TDAP 2011-10-18 00:00:00 Completed [facility] TDAP 2011-10-18 00:00:00 Completed [facility] TDAP 2011-10-18 00:00:00 Completed [facility] TDAP 2011-10-18 00:00:00 Completed [facility] TDAP 2011-10-18 00:00:00 Completed [facility] TDAP 2011-10-18 00:00:00 Completed [facility] TDAP 2011-10-18 00:00:00 Completed [facility] TDAP 2011-10-18 00:00:00 Completed [facility] TDAP 2011-10-18 00:00:00 Completed [facility] TDAP 2011-10-18 00:00:00 Completed [facility] TDAP 2011-10-18 00:00:00 Completed [facility] TDAP 2011-10-18 00:00:00 Completed [facility] TDAP 2011-10-18 00:00:00 Completed [facility] TDAP 2011-10-18 00:00:00 Completed [facility] Meningococcal Polysaccharide (groups A, C, Y and W-135) conjugate vaccine (MCV4P) 2011-09-23 00:00:00 Completed [facility] Meningococcal Polysaccharide (groups A, C, Y and W-135) conjugate vaccine (MCV4P) 2011-09-23 00:00:00 Completed [facility] Meningococcal Polysaccharide (groups A, C, Y and W-135) conjugate vaccine (MCV4P) 2011-09-23 00:00:00 Completed [facility] Meningococcal Polysaccharide (groups A, C, Y and W-135) conjugate vaccine (MCV4P) Unknown [facility]pleted [facility] TD[facility] Unknown Completed [facility] MMR Unknown Completed [facility] Influenza Virus Vaccine Quad IM 3+ YRS Unknown Completed [facility] Meningococcal Polysaccharide (groups A, C, Y and W-135) conjugate vaccine (MCV4P) Unknown Completed [facility] TDAP Unknown Completed [facility] MMR Unknown Completed [facility] Influenza Virus Vaccine Quad IM 3+ YRS Unknown Completed [facility] Meningococcal Polysaccharide (groups A, C, Y and W-135) conjugate vaccine (MCV4P) Unknown Completed [facility] TDAP Unknown Completed [facility] MMR Unknown Completed [facility] Influenza Virus Vaccine Quad IM 3+ YRS Unknown Completed [facility] Meningococcal Polysaccharide (groups A, C, Y and W-135) conjugate vaccine (MCV4P) Unknown Completed [facility] TDAP Unknown Completed [facility] MMR Unknown Completed [facility] Influenza Virus Vaccine Quad IM 3+ YRS Unknown Completed [facility] Meningococcal Polysaccharide (groups A, C, Y and W-135) conjugate vaccine (MCV4P) Unknown Completed [facility] TDAP Unknown Completed [facility] MMR Unknown Completed [facility] Influenza Virus Vaccine Quad IM 3+ YRS Unknown Completed [facility] Meningococcal Polysaccharide (groups A, C, Y and W-135) conjugate vaccine (MCV4P) Unknown Completed [facility] TDAP Unknown Completed [facility] MMR Unknown Completed [facility] Influenza Virus Vaccine Quad IM 3+ YRS Unknown Completed [facility] Meningococcal Polysaccharide (groups A, C, Y and W-135) conjugate vaccine (MCV4P) Unknown Completed [facility] MMR Unknown Completed [facility] Influenza Virus Vaccine Quad IM 3+ YRS Unknown Completed [facility] TDAP Unknown Completed [facility] MMR Unknown Completed [facility] Influenza Virus Vaccine Quad IM 3+ YRS Unknown Completed [facility] Meningococcal Polysaccharide (groups A, C, Y and W-135) conjugate vaccine (MCV4P) Unknown Completed [facility] TDAP Unknown Completed [facility] MMR Unknown Completed [facility] Influenza Virus Vaccine Quad IM 3+ YRS Unknown Completed [facility] Meningococcal Polysaccharide (groups A, C, Y and W-135) conjugate vaccine (MCV4P) Unknown Completed [facility] TDAP Unknown Completed [facility] MMR Unknown Completed [facility] Influenza Virus Vaccine Quad IM 3+ YRS Unknown Completed [facility] Meningococcal Polysaccharide (groups A, C, Y and W-135) conjugate vaccine (MCV4P) Unknown Completed [facility] TDAP Unknown Completed [facility] MMR Unknown Completed [facility] Influenza Virus Vaccine Quad IM 3+ YRS Unknown Completed [facility] Meningococcal Polysaccharide (groups A, C, Y and W-135) conjugate vaccine (MCV4P) Unknown Completed [facility] TDAP Unknown Completed [facility] MMR Unknown Completed [facility] Influenza Virus Vaccine Quad IM 3+ YRS Unknown Completed [facility] Meningococcal Polysaccharide (groups A, C, Y and W-135) conjugate vaccine (MCV4P) Unknown Completed [facility] MMR Unknown Completed [facility] Influenza Virus Vaccine Quad IM 3+ YRS Unknown Completed [facility] Meningococcal Polysaccharide (groups A, C, Y and W-135) conjugate vaccine (MCV4P) Unknown Completed [facility] TDAP Unknown Completed [facility] TDAP Unknown Completed [facility] MMR Unknown Completed [facility] Influenza Virus Vaccine Quad IM 3+ YRS Unknown Completed [facility] Meningococcal Polysaccharide (groups A, C, Y and W-135) conjugate vaccine (MCV4P) Unknown Completed [facility] TDAP Unknown Completed [facility] MMR Unknown Completed [facility] Influenza Virus Vaccine Quad IM 3+ YRS Unknown Completed [facility] Meningococcal Polysaccharide (groups A, C, Y and W-135) conjugate vaccine (MCV4P) Unknown Completed [facility] TDAP Unknown Completed [facility] MMR Unknown Completed [facility] Influenza Virus Vaccine Quad IM 3+ YRS Unknown Completed [facility] Meningococcal Polysaccharide (groups A, C, Y and W-135) conjugate vaccine (MCV4P) Unknown Completed [facility] TDAP Unknown Completed [facility] MMR Unknown Completed [facility] Influenza Virus Vaccine Quad IM 3+ YRS Unknown Completed [facility] Meningococcal Polysaccharide (groups A, C, Y and W-135) conjugate vaccine (MCV4P) Unknown Completed [facility] TDAP Unknown Completed [facility] MMR Unknown Completed [facility] Influenza Virus Vaccine Quad IM 3+ YRS Unknown Completed [facility] Meningococcal Polysaccharide (groups A, C, Y and W-135) conjugate vaccine (MCV4P) Unknown Completed [facility] TDAP Unknown Completed [facility] MMR Unknown Completed [facility] Influenza Virus Vaccine Quad IM 3+ YRS Unknown Completed [facility] Meningococcal Polysaccharide (groups A, C, Y and W-135) conjugate vaccine (MCV4P) Unknown Completed [facility] TDAP Unknown Completed [facility] MMR Unknown Completed [facility] Influenza Virus Vaccine Quad IM 3+ YRS Unknown Completed [facility] Meningococcal Polysaccharide (groups A, C, Y and W-135) conjugate vaccine (MCV4P) Unknown Completed [facility] TDAP Unknown Completed [facility] MMR Unknown Completed [facility] Influenza Virus Vaccine Quad IM 3+ YRS Unknown Completed [facility] Meningococcal Polysaccharide (groups A, C, Y and W-135) conjugate vaccine (MCV4P) Unknown Completed [facility] MMR Unknown Completed [facility] Influenza Virus Vaccine Quad IM 3+ YRS Unknown Completed [facility] Meningococcal Polysaccharide (groups A, C, Y and W-135) conjugate vaccine (MCV4P) Unknown Completed [facility] TDAP Unknown Completed [facility] TDAP Unknown Completed [facility] MMR Unknown Completed [facility] Influenza Virus Vaccine Quad IM 3+ YRS Unknown Completed [facility] Meningococcal Polysaccharide (groups A, C, Y and W-135) conjugate vaccine (MCV4P) Unknown Completed [facility] TDAP Unknown Completed [facility] MMR Unknown Completed [facility] Influenza Virus Vaccine Quad IM 3+ YRS Unknown Completed [facility] Meningococcal Polysaccharide (groups A, C, Y and W-135) conjugate vaccine (MCV4P) Unknown Completed [facility] MMR Unknown Completed [facility] Influenza Virus Vaccine Quad IM 3+ YRS Unknown Completed [facility] Meningococcal Polysaccharide (groups A, C, Y and W-135) conjugate vaccine (MCV4P) Unknown Completed [facility] TDAP Unknown Completed [facility] TDAP Unknown Completed [facility] MMR Unknown Completed [facility] Influenza Virus Vaccine Quad IM 3+ YRS Unknown Completed [facility] Meningococcal Polysaccharide (groups A, C, Y and W-135) conjugate vaccine (MCV4P) Unknown Completed [facility] TDAP Unknown Completed [facility] MMR Unknown Completed [facility] Influenza Virus Vaccine Quad IM 3+ YRS Unknown Completed [facility] Meningococcal Polysaccharide (groups A, C, Y and W-135) conjugate vaccine (MCV4P) Unknown Completed [facility] TDAP Unknown Completed [facility] MMR Unknown Completed [facility] Influenza Virus Vaccine Quad IM 3+ YRS Unknown Completed [facility] Meningococcal Polysaccharide (groups A, C, Y and W-135) conjugate vaccine (MCV4P) Unknown Completed [facility] TDAP Unknown Completed [facility] MMR Unknown Completed [facility] Influenza Virus Vaccine Quad IM 3+ YRS Unknown Completed [facility] Meningococcal Polysaccharide (groups A, C, Y and W-135) conjugate vaccine (MCV4P) Unknown Completed [facility] MMR Unknown Completed [facility] Influenza Virus Vaccine Quad IM 3+ YRS Unknown Completed [facility] Meningococcal Polysaccharide (groups A, C, Y and W-135) conjugate vaccine (MCV4P) Unknown Completed [facility] TDAP Unknown Completed [facility] TDAP Unknown Completed [facility] MMR Unknown Completed [facility] Influenza Virus Vaccine Quad IM 3+ YRS Unknown Completed [facility] Meningococcal Polysaccharide (groups A, C, Y and W-135) conjugate vaccine (MCV4P) Unknown Completed [facility] TDAP Unknown Completed [facility] MMR Unknown Completed [facility] Influenza Virus Vaccine Quad IM 3+ YRS Unknown Completed [facility] Meningococcal Polysaccharide (groups A, C, Y and W-135) conjugate vaccine (MCV4P) Unknown Completed [facility] TDAP Unknown Completed [facility] MMR Unknown Completed [facility] Influenza Virus Vaccine Quad IM 3+ YRS Unknown Completed [facility] Meningococcal Polysaccharide (groups A, C, Y and W-135) conjugate vaccine (MCV4P) Unknown Completed [facility] TDAP Unknown Completed [facility] MMR Unknown Completed [facility] Influenza Virus Vaccine Quad IM 3+ YRS Unknown Completed [facility] Meningococcal Polysaccharide (groups A, C, Y and W-135) conjugate vaccine (MCV4P) Unknown Completed [facility] TDAP Unknown Completed [facility] MMR Unknown Completed [facility] Influenza Virus Vaccine Quad IM 3+ YRS Unknown Completed [facility] Meningococcal Polysaccharide (groups A, C, Y and W-135) conjugate vaccine (MCV4P) Unknown Completed [facility] TDAP Unknown Completed [facility] MMR Unknown Completed [facility] Influenza Virus Vaccine Quad IM 3+ YRS Unknown Completed [facility] Meningococcal Polysaccharide (groups A, C, Y and W-135) conjugate vaccine (MCV4P) Unknown Completed [facility] TDAP Unknown Completed [facility] MMR Unknown Completed [facility] Influenza Virus Vaccine Quad IM 3+ YRS Unknown Completed [facility] Meningococcal Polysaccharide (groups A, C, Y and W-135) conjugate vaccine (MCV4P) Unknown Completed [facility] TDAP Unknown Completed [facility] MMR Unknown Completed [facility] Influenza Virus Vaccine Quad IM 3+ YRS Unknown Completed [facility] Meningococcal Polysaccharide (groups A, C, Y and W-135) conjugate vaccine (MCV4P) Unknown Completed [facility] MMR Unknown Completed [facility] Influenza Virus Vaccine Quad IM 3+ YRS Unknown Completed [facility] Meningococcal Polysaccharide (groups A, C, Y and W-135) conjugate vaccine (MCV4P) Unknown Completed [facility] MMR Unknown Completed [facility] Influenza Virus Vaccine Quad IM 3+ YRS Unknown Completed [facility] Meningococcal Polysaccharide (groups A, C, Y and W-135) conjugate vaccine (MCV4P) Unknown Completed [facility] TDAP Unknown Completed [facility] TDAP Unknown Completed [facility] TDAP Unknown Completed [facility] MMR Unknown Completed [facility] Influenza Virus Vaccine Quad IM 3+ YRS Unknown Completed [facility] Meningococcal Polysaccharide (groups A, C, Y and W-135) conjugate vaccine (MCV4P) Unknown Completed [facility] TDAP Unknown Completed [facility] MMR Unknown Completed [facility] Influenza Virus Vaccine Quad IM 3+ YRS Unknown Completed [facility] Meningococcal Polysaccharide (groups A, C, Y and W-135) conjugate vaccine (MCV4P) Unknown Completed [facility] TDAP Unknown Completed [facility] MMR Unknown Completed [facility] Influenza Virus Vaccine Quad IM 3+ YRS Unknown Completed [facility] Meningococcal Polysaccharide (groups A, C, Y and W-135) conjugate vaccine (MCV4P) Unknown Completed [facility] TDAP Unknown Completed [facility] MMR Unknown Completed [facility] Influenza Virus Vaccine Quad IM 3+ YRS Unknown Completed [facility] Meningococcal Polysaccharide (groups A, C, Y and W-135) conjugate vaccine (MCV4P) Unknown Completed [facility] TDAP Unknown Completed [facility] MMR Unknown Completed [facility] Influenza Virus Vaccine Quad IM 3+ YRS Unknown Completed [facility] Meningococcal Polysaccharide (groups A, C, Y and W-135) conjugate vaccine (MCV4P) Unknown Completed [facility] TDAP Unknown Completed [facility] MMR Unknown Completed [facility] Influenza Virus Vaccine Quad IM 3+ YRS Unknown Completed [facility] Meningococcal Polysaccharide (groups A, C, Y and W-135) conjugate vaccine (MCV4P) Unknown Completed [facility] TDAP Unknown Completed [facility] MMR Unknown Completed [facility] Influenza Virus Vaccine Quad IM 3+ YRS Unknown Completed [facility] Meningococcal Polysaccharide (groups A, C, Y and W-135) conjugate vaccine (MCV4P) Unknown Completed [facility] TDAP Unknown Completed [facility] MMR Unknown Completed [facility] Influenza Virus Vaccine Quad IM 3+ YRS Unknown Completed [facility] Meningococcal Polysaccharide (groups A, C, Y and W-135) conjugate vaccine (MCV4P) Unknown Completed [facility] TDAP Unknown Completed [facility] MMR Unknown Completed [facility] Influenza Virus Vaccine Quad IM 3+ YRS Unknown Completed [facility] Meningococcal Polysaccharide (groups A, C, Y and W-135) conjugate vaccine (MCV4P) Unknown Completed [facility] TDAP Unknown Completed [facility] MMR Unknown Completed [facility] Influenza Virus Vaccine Quad IM 3+ YRS Unknown Completed [facility] Meningococcal Polysaccharide (groups A, C, Y and W-135) conjugate vaccine (MCV4P) Unknown Completed [facility] TDAP Unknown Completed [facility] MMR Unknown Completed [facility] Influenza Virus Vaccine Quad IM 3+ YRS Unknown Completed [facility] Meningococcal Polysaccharide (groups A, C, Y and W-135) conjugate vaccine (MCV4P) Unknown Completed [facility] TDAP Unknown Completed [facility] MMR Unknown Completed [facility] Influenza Virus Vaccine Quad IM 3+ YRS Unknown Completed [facility] Meningococcal Polysaccharide (groups A, C, Y and W-135) conjugate vaccine (MCV4P) Unknown Completed [facility] TDAP Unknown Completed [facility] MMR Unknown Completed [facility] Influenza Virus Vaccine Quad IM 3+ YRS Unknown Completed [facility] Meningococcal Polysaccharide (groups A, C, Y and W-135) conjugate vaccine (MCV4P) Unknown Completed [facility] TDAP Unknown Completed [facility] MMR Unknown Completed [facility] Influenza Virus Vaccine Quad IM 3+ YRS Unknown Completed [facility] Meningococcal Polysaccharide (groups A, C, Y and W-135) conjugate vaccine (MCV4P) Unknown Completed [facility] TDAP Unknown Completed [facility] MMR Unknown Completed [facility] Influenza Virus Vaccine Quad IM 3+ YRS Unknown Completed [facility] Meningococcal Polysaccharide (groups A, C, Y and W-135) conjugate vaccine (MCV4P) Unknown Completed [facility] TDAP Unknown Completed [facility] MMR Unknown Completed [facility] Influenza Virus Vaccine Quad IM 3+ YRS Unknown Completed [facility] Meningococcal Polysaccharide (groups A, C, Y and W-135) conjugate vaccine (MCV4P) Unknown Completed [facility] TDAP Unknown Completed [facility] MMR Unknown Completed [facility] Influenza Virus Vaccine Quad IM 3+ YRS Unknown Completed [facility] Meningococcal Polysaccharide (groups A, C, Y and W-135) conjugate vaccine (MCV4P) Unknown Completed [facility] TDAP Unknown Completed [facility] MMR Unknown Completed [facility] Influenza Virus Vaccine Quad IM 3+ YRS Unknown Completed [facility] Meningococcal Polysaccharide (groups A, C, Y and W-135) conjugate vaccine (MCV4P) Unknown Completed [facility] Vital Signs Vital Name Observation Time Observation Value Comments S ource Height 2024-11-22 00:00:00 65 [in_i] [facility] Weight 2024-11-22 00:00:00 240.6 [lb_av] [facility] BP Systolic 2024-11-22 00:00:00 115 mm[Hg] [facility] BMI (Body Mass Index) 2024-11-22 00:00:00 40 kg/m2 [facility] BP Diastolic 2024-11-22 00:00:00 72 mm[Hg] [facility] Systolic blood pressure 2024-08-23 16:01:00 103 mm[Hg] [facility] acute hospital Diastolic blood pressure 2024-08-23 16:01:00 59 mm[Hg] [facility] acute hospital Heart rate 2024-08-23 16:01:00 90 /min [facility] Body temperature 2024-08-23 16:01:00 36.89 Gema [facility] Respiratory rate 2024-08-23 16:01:00 18 /min [facility] Body height 2024-08-23 16:01:00 165.1 cm [facility] Body weight 2024-08-23 16:01:00 105.643 kg [facility] BMI 2024-08-23 16:01:00 38.76 kg/m2 [facility] Oxygen saturation in Arterial blood by Pulse oximetry 2024-08-23 16:01:00 97 /min [facility] hospital Systolic blood pressure 2024-03-09 15:54:00 157 mm[Hg] [facility] acute hospital Diastolic blood pressure 2024-03-09 15:54:00 87 mm[Hg] [facility] acute hospital Heart rate 2024-03-09 15:54:00 112 /min [facility] Respiratory rate 2024-03-09 15:54:00 18 /min [facility] Body height 2024-03-09 15:54:00 165.1 cm [facility] Body weight 2024-03-09 15:54:00 107.502 kg [facility] BMI 2024-03-09 15:54:00 39.44 kg/m2 [facility] Systolic blood pressure 2024-02-22 15:28:00 110 mm[Hg] [facility] acute hospital Diastolic blood pressure 2024-02-22 15:28:00 67 mm[Hg] [facility] acute hospital Heart rate 2024-02-22 15:28:00 91 /min [facility] Body temperature 2024-02-22 15:28:00 36.67 Gema [facility] Body height 2024-02-22 15:28:00 165.1 cm Univ [facility] Body weight 2024-02-22 15:28:00 109.176 kg Univ [facility] BMI 2024-02-22 15:28:00 40.05 kg/m2 [facility] Systolic blood pressure 2024-02-18 14:13:00 115 mm[Hg] [facility] acute hospital Diastolic blood pressure 2024-02-18 14:13:00 68 mm[Hg] [facility] acute hospital Heart rate 2024-02-18 14:13:00 92 /min [facility] Respiratory rate 2024-02-18 14:13:00 18 /min [facility] Body height 2024-02-18 14:13:00 165.1 cm [facility] Body weight 2024-02-18 14:13:00 110.315 kg [facility] BMI 2024-02-18 14:13:00 40.47 kg/m2 [facility] Oxygen saturation in Arterial blood by Pulse oximetry 2024-02-18 14:13:00 98 /min [facility] acute hospital Systolic blood pressure 2024-01-07 16:16:00 126 mm[Hg] [facility] acute hospital Diastolic blood pressure 2024-01-07 16:16:00 66 mm[Hg] [facility] acute hospital Heart rate 2024-01-07 16:16:00 97 /min [facility] Body temperature 2024-01-07 16:16:00 36.39 Gema [facility] Respiratory rate 2024-01-07 16:16:00 18 /min [facility] Body height 2024-01-07 16:16:00 165.1 cm [facility] Body weight 2024-01-07 16:16:00 109.317 kg [facility] BMI 2024-01-07 16:16:00 40.10 kg/m2 [facility] Oxygen saturation in Arterial blood by Pulse oximetry 2024-01-07 16:16:00 98 /min [facility] hospital Systolic blood pressure 2023-12-31 19:05:00 105 mm[Hg] [facility] acute hospital Diastolic blood pressure 2023-12-31 19:05:00 56 mm[Hg] [facility] acute hospital Heart rate 2023-12-31 19:05:00 95 /min [facility] Body temperature 2023-12-31 19:05:00 36.94 Gema [facility] Respiratory rate 2023-12-31 19:05:00 17 /min [facility] Body height 2023-12-31 19:05:00 165.1 cm [facility] Body weight 2023-12-31 19:05:00 109.402 kg [facility] BMI 2023-12-31 19:05:00 40.14 kg/m2 [facility] Oxygen saturation in Arterial blood by Pulse oximetry 2023-12-31 19:05:00 98 /min [facility] acute hospital Systolic blood pressure 2023-12-30 17:54:00 125 mm[Hg] [facility] acute hospital Diastolic blood pressure 2023-12-30 17:54:00 81 mm[Hg] [facility] acute hospital Heart rate 2023-12-30 17:54:00 92 /min [facility] Body height 2023-12-30 17:54:00 165.1 cm [facility] Body weight 2023-12-30 17:54:00 111.585 kg [facility] BMI 2023-12-30 17:54:00 40.94 kg/m2 [facility] Oxygen saturation in Arterial blood by Pulse oximetry 2023-12-30 17:54:00 98 /min [facility] acute hospital Systolic blood pressure 2023-12-07 20:02:00 121 mm[Hg] [facility] acute hospital Diastolic blood pressure 2023-12-07 20:02:00 79 mm[Hg] General acute hospital Heart rate 2023-12-07 20:02:00 109 /min [facility] Body temperature 2023-12-07 20:02:00 36.44 Gema [facility] Respiratory rate 2023-12-07 20:02:00 18 /min [facility] Body height 2023-12-07 20:02:00 165.1 cm [facility] Body weight 2023-12-07 20:02:00 108.274 kg [facility] BMI 2023-12-07 20:02:00 39.72 kg/m2 [facility] Oxygen saturation in Arterial blood by Pulse oximetry 2023-12-07 20:02:00 98 /min [facility] acute hospital Systolic blood pressure 2023-07-01 18:43:00 113 mm[Hg] [facility] acute hospital Diastolic blood pressure 2023-07-01 18:43:00 75 mm[Hg] General acute hospital Heart rate 2023-07-01 18:43:00 102 /min [facility] Body temperature 2023-07-01 18:43:00 36.61 Gema [facility] Body height 2023-07-01 18:43:00 165.1 cm [facility] Body weight 2023-07-01 18:43:00 108.138 kg [facility] BMI 2023-07-01 18:43:00 39.67 kg/m2 [facility] Oxygen saturation in Arterial blood by Pulse oximetry 2023-07-01 18:43:00 97 /min [facility] acute hospital Systolic blood pressure 2023-07-01 18:43:00 113 mm[Hg] [facility] acute hospital Diastolic blood pressure 2023-07-01 18:43:00 75 mm[Hg] [facility] acute hospital Heart rate 2023-07-01 18:43:00 102 /min [facility] Body temperature 2023-07-01 18:43:00 36.61 Gema [facility] Body height 2023-07-01 18:43:00 165.1 cm Univ [facility] Body weight 2023-07-01 18:43:00 108.138 kg Univ [facility] BMI 2023-07-01 18:43:00 39.67 kg/m2 [facility] Oxygen saturation in Arterial blood by Pulse oximetry 2023-07-01 18:43:00 97 /min [facility] acute hospital Systolic blood pressure 2023-02-01 19:25:00 110 mm[Hg] [facility] acute hospital Diastolic blood pressure 2023-02-01 19:25:00 74 mm[Hg] General acute hospital Heart rate 2023-02-01 19:25:00 103 /min [facility] Respiratory rate 2023-02-01 19:25:00 16 /min [facility] Body height 2023-02-01 19:25:00 165.1 cm [facility] Body weight 2023-02-01 19:25:00 106.198 kg [facility] BMI 2023-02-01 19:25:00 38.96 kg/m2 [facility] Systolic blood pressure 2023-01-29 19:19:00 109 mm[Hg] General acute hospital Diastolic blood pressure 2023-01-29 19:19:00 76 mm[Hg] [facility] acute hospital Body temperature 2023-01-29 19:19:00 36.94 Gema [facility] Body height 2023-01-29 19:19:00 165.1 cm [facility] Body weight 2023-01-29 19:19:00 106.822 kg [facility] BMI 2023-01-29 19:19:00 39.19 kg/m2 [facility] Oxygen saturation in Arterial blood by Pulse oximetry 2023-01-29 19:19:00 100 /min [facility] acute hospital Systolic blood pressure 2022-12-04 15:08:00 123 mm[Hg] General acute hospital Diastolic blood pressure 2022-12-04 15:08:00 84 mm[Hg] General acute hospital Heart rate 2022-12-04 15:08:00 107 /min [facility] Body temperature 2022-12-04 15:08:00 36.67 Gema [facility] Body height 2022-12-04 15:08:00 165.1 cm [facility] Body weight 2022-12-04 15:08:00 106.686 kg [facility] BMI 2022-12-04 15:08:00 39.14 kg/m2 [facility] Oxygen saturation in Arterial blood by Pulse oximetry 2022-12-04 15:08:00 98 /min [facility] acute hospital Systolic blood pressure 2022-09-25 19:11:00 109 mm[Hg] General acute hospital Diastolic blood pressure 2022-09-25 19:11:00 74 mm[Hg] General acute hospital Heart rate 2022-09-25 19:11:00 101 /min [facility] Body height 2022-09-25 19:11:00 165.1 cm [facility] Body weight 2022-09-25 19:11:00 100.245 kg [facility] BMI 2022-09-25 19:11:00 36.78 kg/m2 [facility] Oxygen saturation in Arterial blood by Pulse oximetry 2022-09-25 19:11:00 96 /min [facility] acute hospital Body weight 2022-08-21 15:26:00 100.245 kg [facility] BMI 2022-08-21 15:26:00 36.78 kg/m2 [facility] Systolic blood pressure 2022-08-03 14:04:00 119 mm[Hg] General acute hospital Diastolic blood pressure 2022-08-03 14:04:00 78 mm[Hg] General acute hospital Heart rate 2022-08-03 14:04:00 96 /min [facility] Body temperature 2022-08-03 14:04:00 36.44 Gema [facility] Body height 2022-08-03 14:04:00 165.1 cm [facility] Body weight 2022-08-03 14:04:00 100.245 kg [facility] BMI 2022-08-03 14:04:00 36.78 kg/m2 [facility] Oxygen saturation in Arterial blood by Pulse oximetry 2022-08-03 14:04:00 97 /min [facility] acute hospital Systolic blood pressure 2022-06-29 14:24:00 128 mm[Hg] General acute hospital Diastolic blood pressure 2022-06-29 14:24:00 79 mm[Hg] General acute hospital Heart rate 2022-06-29 14:24:00 89 /min [facility] Body temperature 2022-06-29 14:24:00 37 Gema [facility] Body height 2022-06-29 14:24:00 165.1 cm [facility] Body weight 2022-06-29 14:24:00 98.884 kg [facility] BMI 2022-06-29 14:24:00 36.28 kg/m2 [facility] Oxygen saturation in Arterial blood by Pulse oximetry 2022-06-29 14:24:00 97 /min [facility] acute hospital Procedures Procedure Date / Time Performed Performing Clinician Source US PELVIS COMPLETE WITH TRANSVAGINAL 2024-03-07 15:44:09 AdumBritney [facility] POCT HEMOGLOBIN A1C TEST 2023-02-01 00:00:00 Corby Collins [facility] ASSIGNMENT OF BENEFITS 2023-01-29 19:16:00 Docto r Unassigned, Blende [facility] POCT HEMOGLOBIN A1C TEST 2022-09-25 19:14:00 Corby Collins [facility] Tonsillectomy [facility] Encounters Start Date/Time End Date/Time Encounter Type Admission Type Attending Clinicians Care Facility Care Department Encounter ID Source 2021-08-16 08:54:14 Emergency [facility] [id number] [facility] 2024-11-22 00:00:00 2024-11-22 00:00:00 Vanita Lacey MD: [address], [place] [address] , Ph. [facility]_GCBZW_Kia Epperson* [id number] [facility] 2024-11-16 00:00:00 2024-11-17 01:20:46 Juliet Ibarra [facility] 1.2.840.114 350.1.13.10 4.2.7.2.686 [id number] [facility] 2024-10-09 00:00:00 2024-10-16 13:27:18 [facility] 1.2.840.114 350.1.13.10 4.2.7.2.686 [id number] 044 [id number] [facility] 2024-09-09 00:00:00 2024-09-11 09:09:42 Refill Ismael [facility] 1.2.840.114 350.1.13.10 4.2.7.2.686 [id number] [facility] 2024-08-29 00:00:00 2024-08-29 13:01:24 Refronnie Guevara [facility] 1.2.840.114 350.1.13.10 4.2.7.2.686 [id number] [facility] 2024-08-23 10:00:00 2024-08-23 10:23:25 Outpatient R MC KYLIE [facility] [id number] [facility] 2024-08-23 10:00:00 2024-08-23 10:23:25 Office Visit Kylie Bentley [facility] 1.2.840.114 350.1.13.10 4.2.7.2.686 [id number] [facility] 2024-08-18 00:00:00 2024-08-21 12:51:12 Refronnie [facility]vara [facility] 1.2.840.114 350.1.13.10 4.2.7.2.686 [id number] [facility] 2024-07-06 00:00:00 2024-07-06 11:21:08 [facility] 1.2.840.114 350.1.13.10 4.2.7.2.686 [id number] [facility] 2024-07-06 00:00:00 2024-07-06 07:18:43 [facility] 1.2.840.114 350.1.13.10 4.2.7.2.686 [id number] [facility] 2024-07-04 00:00:00 2024-07-04 14:41:57 [facility]ill [facility]el [facility] 1.2.840.114 350.1.13.10 4.2.7.2.686 [id number] [facility] 2024-06-27 00:00:00 2024-06-27 13:51:15 Refill [facility]el [facility] 1.2.840.114 350.1.13.10 4.2.7.2.686 [id number] 044 [id number] [facility] 2024-05-27 00:00:00 2024-05-30 13:30:14 Refill [facility]el [facility] 1.2.840.114 350.1.13.10 4.2.7.2.686 [id number] 044 [id number] [facility] 2024-05-13 00:00:00 2024-05-16 09:36:37 Refill [facility]el [facility] 1.2.840.114 350.1.13.10 4.2.7.2.686 [id number] 044 [id number] [facility] 2024-05-15 00:00:00 2024-05-15 09:45:22 Refronnie Paz Akash [facility] 1.2.840.114 350.1.13.10 4.2.7.2.686 [id number] [facility] 2024-05-07 00:00:00 2024-05-08 12:42:43 Refronnie Guevara [facility] 1.2.840.114 350.1.13.10 4.2.7.2.686 [id number] [facility] 2024-05-07 00:00:00 2024-05-08 10:33:20 Refronnie Guevara [facility] 1.2.840.114 350.1.13.10 4.2.7.2.686 [id number] [id number] [facility] 2024-04-21 00:00:00 2024-04-21 10:24:57 Refronnie Guevara [facility] 1.2.840.114 350.1.13.10 4.2.7.2.686 [id number] 044 [id number] [facility] 2024-04-21 00:00:00 2024-04-21 09:58:58 Refronnie Guevara [facility] 1.2.840.114 350.1.13.10 4.2.7.2.686 [id number] [facility] 2024-04-07 11:00:00 2024-04-07 11:00:00 Outpatient JULIET PRATHER [facility] [id number] [facility] 2023-07-12 00:00:00 2024-04-04 02:07:44 Mobile Device Encounter Juliet Guevara [facility] 1.2.840.114 350.1.13.10 4.2.7.2.686 [id number] 044 [id number] [facility] 2024-03-30 00:00:00 2024-03-31 06:52:09 Refill Juliet Guevara [facility] 1.2.840.114 350.1.13.10 4.2.7.2.686 [id number] [id number] [facility] 2024-03-24 00:00:00 2024-03-27 14:53:21 Refill Kylie Bentley [facility] 1.2.840.114 350.1.13.10 4.2.7.2.686 [id number] [id number] [facility] 2024-03-24 00:00:00 2024-03-24 13:35:20 Refill Kylie Bentley [facility] 1.2.840.114 350.1.13.10 4.2.7.2.686 [id number] [id number] [facility] 2024-03-09 00:00:00 2024-03-17 13:11:47 Telephone AdBritney read [facility] 1.2.840.114 350.1.13.10 4.2.7.2.686 [id number] [facility] 2024-03-13 00:00:00 2024-03-15 08:48:43 Refill Corby Collins [facility] 1.2.840.114 350.1.13.10 4.2.7.2.686 [id number] [facility] 2024-03-11 00:00:00 2024-03-13 07:43:12 [facility] 1.2840.114 350.1.13.10 4.2.7.2.686 [id number] 044 [id number] [facility] 2024-03-07 00:00:00 2024-03-09 13:19:52 Patient Secure Msg [facility] 1.2840.114 350.1.13.10 4.2.7.2.686 [id number] [id number] [facility] 2024-03-09 00:00:00 2024-03-09 12:15:10 [facility] 1.2840.114 350.1.13.10 4.2.7.2.686 [id number] [facility] 2024-03-09 11:00:00 2024-03-09 12:05:00 Outpatient R LEANNA BRITNEY [facility] [id number] [facility] 2024-03-09 11:00:00 2024-03-09 12:05:00 Office Visit Sena Schumacherian Jannie [facility] 1.2.840.114 350.1.13.10 4.2.7.2.686 [id number] [facility] 2024-03-07 09:50:26 2024-03-07 23:59:00 Outpatient R ARGENTINAMELYSSA BRITNEY [facility] [id number] [facility] 2024-03-07 09:50:26 2024-03-07 23:59:00 Hospital Encounter AdBritney read [facility] 1.2840.114 350.1.13.10 4.2.7.2.686 [id number] [facility] 2024-03-01 00:00:00 2024-03-01 09:31:58 Refronnie Guevara [facility] 1.2840.114 350.1.13.10 4.2.7.2.686 [id number] [id number] [facility] 2024-03-01 00:00:00 2024-03-01 09:31:42 Júnior Guevara [facility] 1.840.114 350.1.13.10 4.2.7.2.686 [id number] [id number] [facility] 2024-02-29 00:00:00 2024-02-29 00:00:00 Outpatient R BRITNEY SCHUMACHER [facility] [id number] [facility] 2024-02-23 00:00:00 2024-02-24 10:33:26 Júnior RiveraLin Jayden [facility] OFFICE BUILDING 1.84.114 350.1.13.10 4.2.7.2.686 [id number] 044 [id number] [facility] 2024-02-23 00:00:00 2024-02-23 12:51:08 Júnior Guevara [facility] BLAYNE?[facility] MEDICAL OFFICE BUILDING 1.284.114 350.1.13.10 4.2.7.2.686 [id number] 044 [id number] [facility] 2024-02-22 10:30:00 2024-02-22 11:05:16 Outpatient R BRITNEY SCHUMACHER [facility] [id number] [facility] 2024-02-22 10:30:00 2024-02-22 11:05:16 Office Visit Britney Schumacher [facility]3] [facility] 1.2840.114 350.1.13.10 4.2.7.2.686 [id number] [facility] 2024-02-18 09:20:00 2024-02-18 09:51:01 Outpatient [facility] [id number] [facility] 2024-02-18 09:20:00 2024-02-18 09:51:01 Office Visit Ismael [facility] B[facility]NE?[facility] MEDICAL OFFICE BUILDING 1.2.840.114 350.1.13.10 4.2.7.2.686 [id number] 044 [id number] [facility] 2024-02-18 00:00:00 2024-02-18 00:00:00 [facility] MEDICAL OFFICE BUILDING 1.2.840.114 350.1.13.10 4.2.7.2.686 [id number] 044 [id number] [facility] 2024-01-22 00:00:00 2024-01-22 00:00:00 [facility]ill [facility]el [facility] MEDICAL OFFICE BUILDING 1.2.840.114 350.1.13.10 4.2.7.2.686 [id number] 044 [id number] [facility] 2024-01-17 00:00:00 2024-01-17 00:00:00 Refill Ismael [facility] BLAYNE?[facility] MEDICAL OFFICE BUILDING 1.2840.114 350.1.13.10 4.2.7.2.686 [id number] 044 [id number] [facility] 2024-01-17 00:00:00 2024-01-17 00:00:00 [facility]ill [facility]el [facility] MEDICAL OFFICE BUILDING 1.2.840.114 350.1.13.10 4.2.7.2.686 [id number] 044 [id number] [facility] 2024-01-13 00:00:00 2024-01-13 00:00:00 [facility] MEDICAL OFFICE BUILDING 1.840.114 350.1.13.10 4.2.7.2.686 [id number] 044 [id number] [facility] 2024-01-07 11:30:00 2024-01-07 12:43:28 Outpatient R KYLIE BENTLEY [facility] [id number] [facility] 2024-01-07 12:00:00 2024-01-07 12:15:00 Launch Engineer Visit Lab, [place] [facility] [place] Kylie Bentley [facility] MEDICAL OFFICE BUILDING 1.84.114 350.1.13.10 4.2.7.2.686 [id number] [facility] 2024-01-07 11:30:00 2024-01-07 12:00:00 Office Visit Kylie Bentley [facility] BLAYNE?[facility] MEDICAL OFFICE BUILDING 1.84.114 350.1.13.10 4.2.7.2.686 [id number] 044 [id number] [facility] 2023-12-31 13:40:00 2023-12-31 14:00:00 Urgent Care Katiana Castle, Attending [facility] MEDICAL OFFICE BUILDING 1.84.114 350.1.13.10 4.2.7.2.686 [id number] [facility] 2023-12-31 13:40:00 2023-12-31 13:40:00 Outpatient R KATIANA CASTLE [facility] [id number] [facility] 2023-12-30 13:00:00 2023-12-30 13:30:00 Office Visit Jade Ahumada [facility] BLAYNE?[facility] MEDICAL OFFICE BUILDING 1.84.114 350.1.13.10 4.2.7.2.686 [id number] 044 [id number] [facility] 2023-12-30 13:00:00 2023-12-30 13:00:00 Outpatient R JADE AHUMADA [facility] [id number] [facility] 2023-12-30 00:00:00 2023-12-30 00:00:00 Refill Lin Rivera [facility] BLAYNE?[facility] MEDICAL OFFICE BUILDING 1.2.840.114 350.1.13.10 4.2.7.2.686 [id number] 044 [id number] [facility] 2023-12-29 00:00:00 2023-12-29 00:00:00 Refill Kamikeith Kylie [facility] MEDICAL OFFICE BUILDING 1.2.840.114 350.1.13.10 4.2.7.2.686 [id number] 044 [id number] [facility] 2023-12-10 00:00:00 2023-12-10 00:00:00 Refill KamiKylie ashu [facility] MEDICAL OFFICE BUILDING 1.2.840.114 350.1.13.10 4.2.7.2.686 [id number] 044 [id number] [facility] 2023-12-10 00:00:00 2023-12-10 00:00:00 Telephone Juliet Guevara [facility]NE?[facility] MEDICAL OFFICE BUILDING 1.2.840.114 350.1.13.10 4.2.7.2.686 [id number] 044 [id number] [facility] 2023-12-09 00:00:00 2023-12-09 00:00:00 Telephone Mc Kylie [facility] MEDICAL OFFICE BUILDING 1.2.840.114 350.1.13.10 4.2.7.2.686 [id number] 044 [id number] [facility] 2023-12-08 00:00:00 2023-12-08 00:00:00 Patient Secure Msg Doctor Unassigned, Blende [facility] BLAYNE?[facility] MEDICAL OFFICE BUILDING 1.840.114 350.1.13.10 4.2.7.2.686 [id number] 044 [id number] [facility] 2023-12-08 00:00:00 2023-12-08 00:00:00 Patient Secure Msg Doctor Unassigned, Blende [facility]NE?J[facility]U [facility] MEDICAL OFFICE BUILDING 1.840114 350.1.13.10 4.2.7.2.686 [id number] 044 [id number] [facility] 2023-12-07 15:00:00 2023-12-07 15:15:00 Launch Engineer Visit Lab, Gilbert Bentley Kylie [facility] BLAYNE?J[facility]U [facility] MEDICAL OFFICE BUILDING 1.84.114 350.1.13.10 4.2.7.2.686 [id number] [facility] 2023-12-07 14:00:00 2023-12-07 14:26:18 Outpatient R MC KYLIE [facility] [id number] [facility] 2023-12-07 14:00:00 2023-12-07 14:26:18 Office Visit Mc Kylie [facility] BLAYNE?JESU [facility] MEDICAL OFFICE BUILDING 1.84.114 350.1.13.10 4.2.7.2.686 [id number] 044 [id number] [facility] 2023-12-07 00:00:00 2023-12-07 00:00:00 Telephone McKylie [facility] MEDICAL OFFICE BUILDING 1.84.114 350.1.13.10 4.2.7.2.686 [id number] 044 [id number] [facility] 2023-12-01 00:00:00 2023-12-01 00:00:00 Refill Juliet Guevara [facility] B[facility]NE?[facility] MEDICAL OFFICE BUILDING 1.2.840.114 350.1.13.10 4.2.7.2.686 [id number] 044 [id number] [facility] 2023-12-01 00:00:00 2023-12-01 00:00:00 Refill Ismael [facility] [place]NE?[facility] MEDICAL OFFICE BUILDING 1.2.840.114 350.1.13.10 4.2.7.2.686 [id number] 044 [id number] [facility] 2023-11-28 00:00:00 2023-11-28 00:00:00 Jane Guevara [facility] B[facility]NE?[facility] MEDICAL OFFICE BUILDING 1.2.840.114 350.1.13.10 4.2.7.2.686 [id number] 044 [id number] [facility] 2023-09-29 00:00:00 2023-09-29 00:00:00 Refill Ismael [facility] [place]NE?[facility] MEDICAL OFFICE BUILDING 1.2840.114 350.1.13.10 4.2.7.2.686 [id number] 044 [id number] [facility] 2023-07-26 00:00:00 2023-07-26 00:00:00 Pre Visit Outreach Moriah Rosas Jannie DARLING 1.2840.114 350.1.13.10 4.2.7.2.686 [id number] [facility] 2023-07-08 00:00:00 2023-07-08 00:00:00 Refill Ismael [facility] [place]NE?[facility] MEDICAL OFFICE BUILDING 1.2840.114 350.1.13.10 4.2.7.2.686 [id number] 044 [id number] [facility] 2023-07-01 13:40:00 2023-07-01 14:10:18 Outpatient R [facility] [id number] [facility] 2023-07-01 13:40:00 2023-07-01 14:10:18 Office Visit Ismael Juliet [facility] BLAYNE?[facility] MEDICAL OFFICE BUILDING 1.2.840.114 350.1.13.10 4.2.7.2.686 [id number] 044 [id number] [facility] 2023-06-25 13:40:00 2023-06-25 13:40:00 Outpatient R JULIET GUEVARA JULIET [facility] [id number] [facility] 2023-04-16 00:00:00 2023-04-16 00:00:00 Refill Cor[facility] MEDICAL OFFICE BUILDING 1.2.840.114 350.1.13.10 4.2.7.2.686 [id number] [facility] 2023-02-02 08:00:00 2023-02-02 08:00:00 Outpatient R JULIET GUEVARA JULIET [facility] [id number] [facility] 2023-02-01 14:30:00 2023-02-01 14:52:31 Outpatient R CORBY COLLINS [facility] [id number] [facility] 2023-02-01 14:30:00 2023-02-01 14:52:31 Office Visit Corby Collins [facility] MEDICAL OFFICE BUILDING 1.2.840.114 350.1.13.10 4.2.7.2.686 [id number] [facility] 2023-01-29 14:30:00 2023-01-29 14:57:39 Outpatient R JADE AHUMADA [facility] [id number] [facility] 2023-01-29 14:30:00 2023-01-29 14:57:39 Office Visit Jade Ahumada [facility] MEDICAL OFFICE BUILDING 1.840.114 350.1.13.10 4.2.7.2.686 [id number] 044 [id number] [facility] 2023-01-29 10:00:00 2023-01-29 10:00:00 Outpatient R CORBY COLLINS [facility] [id number] [facility] 2023-01-29 00:00:00 2023-01-29 00:00:00 Orders Only Doctor Unassigned, Blende [facility] 1.840.114 350.1.13.10 4.2.7.2.686 [id number] [facility] 2022-12-07 13:30:00 2022-12-07 13:30:00 Outpatient R SERGIO BKAER [facility] [id number] [facility] 2022-12-07 13:30:00 2022-12-07 13:30:00 Outpatient R SERGIO BAKER [facility] [id number] [facility] 2022-12-07 00:00:00 2022-12-07 00:00:00 Patient Secure Msg [facility] BUILD[facility] 1..840.114 350.1.13.10 4.2.7.2.686 [id number] 044 [id number] [facility] 2022-12-04 09:20:00 2022-12-04 09:47:56 Outpatient R ISMAEL [facility] [id number] [facility] 2022-12-04 09:20:00 2022-12-04 09:47:56 [facility] MEDICAL OFF[facility] BUILDING 1.840.114 350.1.13.10 4.2.7.2.686 [id number] 044 [id number] [facility] 2022-10-30 10:00:00 2022-10-30 10:00:00 Outpatient R ANTWAN FITCHN [facility] [id number] [facility] 2022-10-12 00:00:00 2022-10-12 00:00:00 Patient Secure Corby Rosales [facility] BLAYNE?[facility] MEDICAL OFFICE BUILDING 1.2.840.114 350.1.13.10 4.2.7.2.686 [id number] [facility] 2022-10-02 09:00:00 2022-10-02 09:00:00 Outpatient NICOLETTE HERNANDEZ [facility] [id number] [facility] 2022-09-28 00:00:00 2022-09-28 00:00:00 Júnior Karina Corby [facility] BLAYNE?[facility]ENN[facility] MEDICAL OFFICE BUILDING 1.2.840.114 350.1.13.10 4.2.7.2.686 [id number] [facility] 2022-09-25 13:00:00 2022-09-25 14:00:02 Outpatient R CORBY COLLINS [facility] [id number] [facility] 2022-09-25 13:00:00 2022-09-25 14:00:02 Office Visit Corby Collins [facility] MEDICAL OFFICE BUILDING 1.2.840.114 350.1.13.10 4.2.7.2.686 [id number] [facility] 2022-09-16 00:00:00 2022-09-16 00:00:00 Refronnie Juliet [facility] MEDICAL OFFICE BUILDING 1..840.114 350.1.13.10 4.2.7.2.686 [id number] [id number] [facility] 2022-08-21 10:15:00 2022-08-21 11:05:34 Outpatient R AME LUCAS [facility] [id number] [facility] 2022-08-21 10:15:00 2022-08-21 11:05:34 Office Visit Whitley Ame CHYNA Priyanka [facility]. 1..114 350.1.13.10 4.2.7.2.686 [id number] [facility] 2022-08-10 00:00:00 2022-08-10 00:00:00 Patient Secure Msg Radha Paredes [facility] MEDICAL OFFICE BUILDING 1..114 350.1.13.10 4.2.7.2.686 [id number] 044 [id number] [facility] 2022-08-10 00:00:00 2022-08-10 00:00:00 Patient Secure Msg Ismael [facility] 1.0.114 350.1.13.10 4.2.7.2.686 [id number] 044 [id number] [facility] 2022-08-07 00:00:00 2022-08-07 00:00:00 Patient Secure Msg Ismael [facility] MEDICAL OFFICE BUILDING 1.2.114 350.1.13.10 4.2.7.2.686 [id number] 044 [id number] [facility] 2022-08-05 00:00:00 2022-08-05 00:00:00 Patient Secure Msg Radha Paredes [facility] MEDICAL OFFICE BUILDING 1.2.114 350.1.13.10 4.2.7.2.686 [id number] 044 [id number] [facility] 2022-08-05 00:00:00 2022-08-05 00:00:00 Patient Secure Msg Ismael [facility]ILD[facility] 1.20.114 350.1.13.10 4.2.7.2.686 [id number] 044 [id number] [facility] 2022-08-03 11:00:00 2022-08-03 11:15:00 Launch Engineer Visit Lab, [place] [facility] MEDICAL OFFICE BUILDING 1.2.840.114 350.1.13.10 4.2.7.2.686 [id number] [facility] 2022-08-03 09:20:00 2022-08-03 09:49:56 Outpatient R CRISTINAPriyanka [facility] [id number] [facility] 2022-08-03 09:20:00 2022-08-03 09:49:56 Office Visit Ismael [facility]NE?JESU [facility] MEDICAL OFFICE BUILDING 1.2.840.114 350.1.13.10 4.2.7.2.686 [id number] 044 [id number] [facility] 2022-08-03 00:00:00 2022-08-03 00:00:00 Patient Secure Msg Guevara [facility] MEDICAL OFFICE BUILDING 1.2.840.114 350.1.13.10 4.2.7.2.686 [id number] 044 [id number] [facility] 2022-07-30 15:40:00 2022-07-30 15:40:00 Outpatient R [facility] [id number] [facility] 2022-07-30 09:20:00 2022-07-30 09:20:00 Outpatient R ISMAEL [facility] [id number] [facility] 2022-07-16 09:20:00 2022-07-16 09:20:[address] [facility] [facility] [id number] [facility] 2022-06-29 09:20:00 2022-06-29 10:12:34 Outpatient R [facility]AN [facility] [id number] [facility] 2022-06-29 09:20:00 2022-06-29 10:12:34 Office Visit Ismael [facility]NE?JESU [facility] MEDICAL OFFICE BUILDING 1.114 350.1.13.10 4.2.7.2.686 [id number] 044 [id number] [facility] 2022-06-29 09:20:00 2022-06-29 09:20:00 Outpatient R ISMAEL [facility] [id number] [facility] 2022-06-26 11:00:00 2022-06-26 12:00:00 Youtuber Visit Nicolette Fitch [facility] 1.114 350.1.13.10 4.2.7.2.686 [id number] [facility] 2022-06-26 11:00:00 2022-06-26 11:00:00 Outpatient R NICOLETTE FITCH [facility] [id number] [facility] 2022-06-18 00:00:00 2022-06-18 00:00:00 Patient Secure Msg [facility] MEDICAL OFF[facility] BUILDING 1.84114 350.1.13.10 4.2.7.2.686 [id number] 044 [id number] [facility] 2022-06-16 00:00:00 2022-06-16 00:00:00 Patient Secure Msg [facility] MEDICAL OFFICE BUILDING 1.84114 350.1.13.10 4.2.7.2.686 [id number] 044 [id number] [facility] 2022-06-15 10:45:00 2022-06-15 10:50:45 Launch Engineer Visit Lab, Ang - [facility] MEDICAL OFF[facility] BUILD[facility] 1.114 350.1.13.10 4.2.7.2.686 [id number] [facility] 2022-06-15 09:20:00 2022-06-15 10:37:43 Outpatient R ISMAEL [facility] [id number] [facility] 2022-06-15 09:20:00 2022-06-15 10:37:43 Outpatient R ISMAEL [facility] [id number] [facility] 2022-06-15 09:20:00 2022-06-15 10:37:43 Office Visit Ismael [facility]NE?[facility] MEDICAL OFFICE BUILDING 1.114 350.1.13.10 4.2.7.2.686 [id number] 044 [id number] [facility] 2022-03-02 00:00:00 2022-03-02 00:00:00 Telephone Sergio Baker [facility] MANA[facility] 1.114 350.1.13.10 4.2.7.2.686 [id number] [facility] 2022-02-26 14:00:00 2022-02-26 14:47:03 Outpatient R SERGIO BAKER [facility] [id number] [facility] 2022-02-26 14:00:00 2022-02-26 14:47:03 Office Visit Sergio Baker [facility] 1..114 350.1.13.10 4.2.7.2.686 [id number] [facility] 2022-01-19 09:30:00 2022-01-19 09:45:00 Telemedici ne Visit Trimester, [facility] Res-1st Lopez [facility] .114 350.1.13.10 4.2.7.2.686 [id number] [facility] 2022-01-19 09:30:00 2022-01-19 09:30:00 Outpatient R DAGO LOPEZ [facility] [id number] [facility] 2022-01-16 10:45:00 2022-01-16 11:41:52 Outpatient R SHAINA LOPEZN [facility] [id number] [facility] 2022-01-16 10:45:00 2022-01-16 11:41:52 Telemedici ne Visit Trimester, [facility] [place] [address] 1.2.840.114 350.1.13.10 4.2.7.2.686 [id number] [facility] 2022-01-16 10:45:00 2022-01-16 11:41:52 Telemedici ne Visit Trimester, [address] 1.2.840.114 350.1.13.10 4.2.7.2.686 [id number] [facility] 2022-01-01 11:37:00 2022-01-01 15:15:00 Outpatient CHRISTINE FIGUEROA [facility] CL[facility] FUNERAL DETAIL [id number] [facility] 2022-01-01 11:37:00 2022-01-01 15:15:00 [facility] 1.2.840.114 350.1.13.10 4.2.7.2.686 [id number] [facility] 2022-01-01 13:00:00 2022-01-01 14:32:00 Surgery [facility] 1.2.840.114 350.1.13.10 4.2.7.2.686 [id number] [facility] 2022-01-01 10:00:00 2022-01-01 12:24:15 Outpatient LUIZ PAIGEOME [facility] [id number] [facility] 2022-01-01 10:00:00 2022-01-01 12:24:15 Routine Visit Trimester, [facility] Res-1st [facility] Christine Jannie [facility] ..840.114 350.1.13.10 4.2.7.2.686 [id number] [facility] 2022-01-01 10:00:00 2022-01-01 12:24:15 Outpatient Maco ANDERSON CHRISTINE [facility] [id number] [facility] 2022-01-01 11:37:00 2022-01-01 11:37:00 Out[facility] FUNERAL DETAIL [id number] [facility] 2022-01-01 10:15:00 2022-01-01 10:15:00 Outpatient FADI VELIZ [facility] [id number] [facility] 2022-01-01 10:15:00 2022-01-01 10:15:00 Outpatient FADI VELIZ [facility] [id number] [facility] 2022-01-01 10:15:00 2022-01-01 10:15:00 Outpatient FADI VELIZ [facility] [id number] [facility] 2021-12-31 14:00:00 2021-12-31 14:27:18 Outpatient FADI VELIZ [facility] [id number] [facility] 2021-12-31 14:00:00 2021-12-31 14:27:18 Routine Visit Fadi Hubbard [facility] MA[facility] ..840.114 350.1.13.10 4.2.7.2.686 [id number] [facility] 2021-12-31 14:00:00 2021-12-31 14:27:18 Outpatient Maco HUBBARDFADI [facility] [id number] [facility] 2021-12-31 14:00:00 2021-12-31 14:00:00 Outpatient Maco HUBBARD, FADI [facility] [id number] [facility] 2021-12-31 04:49:00 2021-12-31 06:45:00 Emergency X CECELIA WEBB [facility] E[facility] [id number] [facility] 2021-12-31 04:49:00 2021-12-31 06:45:00 Emergency Cecelia Webb [facility] 1..840.114 350.1.13.10 4.2.7.2.686 [id number] [facility] 2021-12-29 08:00:00 2021-12-29 08:36:50 Outpatient R FADI HUBBARD [facility] [id number] [facility] 2021-12-29 08:00:00 2021-12-29 08:36:50 Launch Engineer Visit Lab, [facility] Fadi Hubbard [facility] MANA[facility] 1..840.114 350.1.13.10 4.2.7.2.686 [id number] [facility] 2021-12-29 08:00:00 2021-12-29 08:36:50 Outpatient Maco FADI HUBBARD [facility] [id number] [facility] 2021-12-26 00:00:00 2021-12-26 00:00:00 Telephone Fadi Hubbard [facility] 1..840.114 350.1.13.10 4.2.7.2.686 [id number] 107 [id number] [facility] 2021-12-25 17:38:00 2021-12-25 20:51:00 Emergency X DOMINGO YOUSIF [facility] E[facility] [id number] [facility] 2021-12-25 17:38:00 2021-12-25 20:51:00 Emergency Domingo Yousif R [facility] 1.840.114 350.1.13.10 4.2.7.2.686 [id number] [facility] 2021-12-25 17:38:00 2021-12-25 20:51:00 Emergency X DOMINGO YOUSIF [facility] E[facility] [id number] [facility] 2021-12-25 17:38:00 2021-12-25 20:51:00 Emergency X DOMINGO YOUSIF [facility] [id number] [facility] 2021-12-25 00:00:00 2021-12-25 00:00:00 Orders Only Doctor Unassigned, Blende [facility] 1.84.114 350.1.13.10 4.2.7.2.686 [id number] [facility] 2021-12-24 00:00:00 2021-12-24 00:00:00 Fadi De Paz [facility] 1.840.114 350.1.13.10 4.2.7.2.686 [id number] 107 [id number] [facility] 2021-12-23 10:30:00 2021-12-23 11:54:31 Outpatient R MIKEY VIDAL [facility] [id number] [facility] 2021-12-23 10:30:00 2021-12-23 11:54:31 Routine Visit Trimester, [facility] Res-1st Mikey Vidal [facility] 1.84.114 350.1.13.10 4.2.7.2.686 [id number] [facility] 2021-12-23 10:30:00 2021-12-23 11:54:31 Routine Visit Trimester, [facility] Res-1st Mikey Vidal [facility] .840.114 350.1.13.10 4.2.7.2.686 [id number] [facility] 2021-12-23 10:30:00 2021-12-23 11:54:31 Outpatient R MIKEY VIDAL [facility] [id number] [facility] 2021-12-23 10:30:00 2021-12-23 11:54:31 [facility] [id number] [facility] 2021-12-23 00:00:00 2021-12-23 00:00:00 Telephone Faculty, Gilbert Cravenaudi [facility] MANAGER [facility] .840.114 350.1.13.10 4.2.7.2.686 [id number] [facility] 2021-12-22 15:30:00 2021-12-22 16:59:30 Outpatient R DAYRON [facility] [id number] [facility] 2021-12-22 15:30:00 2021-12-22 16:59:30 Outpatient R DAYRON, [facility] [id number] [facility] 2021-12-22 15:30:00 2021-12-22 16:59:30 Telemedici ne Visit Faculty, Gilbert Cravenaudi [facility] Dayron [facility] MANAGER [facility] 1..840.114 350.1.13.10 4.2.7.2.686 [id number] [facility] 2021-12-22 15:30:00 2021-12-22 16:59:30 Outpatient R DAYRON, [facility] [id number] [facility] 2021-12-16 10:30:00 2021-12-16 10:30:00 Routine Visit Trimester, [facility] Res-1st Joey Vanessa [facility] 1..114 350.1.13.10 4.2.7.2.686 [id number] [facility] 2021-12-16 10:30:00 2021-12-16 10:25:25 Outpatient JOEY RAJPUT [facility] [id number] [facility] 2021-12-16 10:30:00 2021-12-16 10:25:25 Outpatient JOEY RAJPUT [facility] [id number] [facility] 2021-12-15 10:00:00 2021-12-15 10:00:00 Outpatient R [facility] [id number] [facility] 2021-12-15 10:00:00 2021-12-15 10:00:00 Outpatient R SAGE PADGETT [facility] [id number] [facility] 2021-12-15 10:00:00 2021-12-15 10:00:00 Outpatient R SAGE PADGETT [facility] [id number] [facility] 2021-12-15 00:00:00 2021-12-15 00:00:00 Telephone Fadi Hubbard [facility] MANAGER [facility] 1..114 350.1.13.10 4.2.7.2.686 [id number] [facility] 2021-12-12 00:00:00 2021-12-12 00:00:00 Telephone Fadi Hubbard [facility] MANAGER [facility] 1..114 350.1.13.10 4.2.7.2.686 [id number] [facility] 2021-12-08 00:00:00 2021-12-08 00:00:00 Telephone Fadi Hubbard [facility] MANAGER [facility] & CHILD [facility] 1.840.114 350.1.13.10 4.2.7.2.686 [id number] [facility] 2021-12-05 13:30:00 2021-12-05 16:29:20 Outpatient FAID VELIZ [facility] [id number] [facility] 2021-12-05 13:30:00 2021-12-05 16:29:20 Initial Visit Fadi Hubbard Damilola C [facility] MANAGER [facility] 1.840.114 350.1.13.10 4.2.7.2.686 [id number] [facility] 2021-12-05 13:30:00 2021-12-05 16:29:20 Outpatient FADI VELIZ [facility] [id number] [facility] 2021-12-05 00:00:00 2021-12-05 00:00:00 Orders Only Doctor Unassigned, Blende [facility] 1.840.114 350.1.13.10 4.2.7.2.686 [id number] [facility] 2021-12-01 09:26:00 2021-12-01 09:55:00 Emergency TAWANA HOGAN [facility] E[facility] [id number] [facility] 2021-12-01 09:26:00 2021-12-01 09:55:00 Emergency Tawana Cervantes [facility] .840.114 350.1.13.10 4.2.7.2.686 [id number] [facility] 2021-12-01 00:00:00 2021-12-01 00:00:00 Orders Only Doctor Unassigned, Blende [facility] 1.840.114 350.1.13.10 4.2.7.2.686 [id number] [facility] 2021-04-10 21:19:00 2021-04-10 21:56:00 Emergency X RHONDA VASQUEZ [facility] E[facility] [id number] [facility] 2021-04-10 21:19:00 2021-04-10 21:56:00 Emergency Rhonda Vasquez [facility] 1.2.840.114 350.1.13.10 4.2.7.2.686 [id number] [facility] 2021-04-10 20:17:05 2021-04-10 20:17:05 [facility] [id number] 2021-04-10 20:17:05 2021-04-10 20:17:05 [facility] [id number] [facility] 2021-01-23 08:00:00 2021-01-23 08:00:00 Outpatient MARLINE PHAM [facility] [id number] [facility] 2020-10-05 21:35:00 2020-10-05 22:56:00 Emergency X BERNY STODDARD [facility] ERT [id number] [facility] 2020-10-05 21:35:00 2020-10-05 22:56:00 Emergency Berny Stoddard [facility] 1.2.840.114 350.1.13.10 4.2.7.2.686 [id number] [facility] 2020-09-19 03:59:00 2020-09-19 04:45:00 Emergency Reji Castellanos [facility] 1.2.840.114 350.1.13.10 4.2.7.2.686 [id number] [facility] 2020-04-11 10:15:00 2020-04-11 10:15:00 Outpatient MARLINE PHAM [facility] [id number] [facility] Results Test Description Test Time Test Comments Results Result Comments Source US PELVIS COMPLETE WITH TRANSVAGINAL 18:12:07 US PELVIS COMPLETE WITH TRANSVAGINAL CLINICAL INDICATIONS: Uterine fibroids- unspecific location ? COMPARISON: None TECHNIQUE: High resolution grayscale imaging, Doppler imaging with color orspectral analysis both transabdominal and transvaginal access. FINDINGS: ? Uterus: 13.1 x 9.3 x 10.0 cmEndometrium: 1.0Echogenic posterior fibroid, 10.5 x 6.3 x 9.2 cm. Echogenic fundal fibroid,6.3 x 6.0 x 6.1 cm. The endometrial canal is unremarkable. Questionablenabothian cysts in the cervix. Right ovary: 3.2 x 1.7 x 1.5 cm cmMultiple small cysts consistent with follicular cysts. Adnexa isunremarkable. Left ovary: 4.0 x 2.4 x 2.1 cmThe left ovary and adnexa are within normal limits by ultrasound criteria. [facility] HEMOGLOBIN A1C [id number] 19:37:00* Test Item Value Reference Range Interpretation Comme [facility] POCT HBA1C (test code = 4548-4) 6.2 % 4-6 A Lab Interpretation (test cod e = 71992-6) Abnormal [facility] HEMOGLOBIN A1C [id number] 19:14:00* Test Item Value Reference Range Interpretation Comme [facility] POCT HBA1C (test code = 4548-4) 6.5 % 4-6 A Lab Interpretation (test cod e = 77748-9) Abnormal [facility] HEMOGLOBIN A1C [id number] 19:14:00* Test Item Value Reference Range Interpretation Comme [facility] POCT HBA1C (test code = 4548-4) 6.5 % 4-6 A Lab Interpretation (test cod e = 98438-2) Abnormal [facility]
[2024-11-23 20:22] LABS: Anion Gap 8.5 mEq/L (5.0-15.0); Potassium 3.5 mEq/L (3.5-5.1)
[2024-11-23 20:43] LABS: Absolute Eosinophils 0.1 K/uL (0-0.5); Absolute Lymphocytes (CBC) 1.2 K/uL (0.7-4.9); Absolute Monocytes 0.6 K/uL (0.1-1.3); Absolute Neutrophil 3.9 K/uL (1.8-8.0); Basophils % 0.7 % (0-1.3); Eosinophils % 1.6 % (0-4.4); Hematocrit 23.6 % (36.0-45.0); Hemoglobin 6.9 g/dL (12.0-15.0); Lymphocytes % 20.7 % (15.3-44.8); MCH 18.2 pg (27.0-35.0); MCHC 29.4 g/dL (32.0-36.0); MCV 61.9 fL (80-100); MPV 8.6 fL (7.6-11.3); Monocytes % 10.1 % (3.3-12.3); Neutrophils % 66.9 % (41.7-73.7); Nucleated Red Blood Cells % 0.1 % (0-0); Platelets 371 thou/uL (152-406); RBC Red Blood Cell Count 3.82 M/uL (3.86-4.86); Red Cell Distribution Width 21.6 % (12.1-15.2)
[2024-11-23 22:25] LABS: Anisocytosis 1+; Blood Morphology Comment NOTED (NOT SEEN); Hypochromasia 1+; Microcytosis 2+; Platelet Estimate ADEQ; White Blood Cell Scan OK (OK)
--- NOTE | 2024-11-23 22:54 | ER ---
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 c/o sore me1 throat with some congestion that started this morning. States she feels like she cant take a deep breath. Coronavirus screen: Vaccine status: Patient reports being unvaccinated. Ebola Screen: No symptoms or risks identified at this time. Initial Sepsis Screen: Does the patient meet any 2 criteria? No. Patient's initial sepsis screen is negative. Does the patient have a suspected source of infection? No. Patient's initial sepsis screen is negative. Risk Assessment: Do you want to hurt yourself or someone else? Patient reports no desire to harm self or others. Onset of symptoms is unknown. 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 - Infectious Disease History:: Denies. - Social history:: Smoking status: Patient denies any tobacco usage or history of. Assessment: 22:50 Reassessment: PT BROUGHT BACK TO CHAIR AND PT DIDN'T WANT TO STAY. REQUESTED IV BE br2 REMOVED. DR GRIFFIN NOTIFIED. Vital Signs: 18:15 BP 107 / 71; Pulse 111; Resp 18; Temp 98.2; Pulse Ox 100% ; Weight 99.79 kg; Height 5 me1 ft. 5 in. ; Pain 6/10; 18:15 Body Mass Index 36.61 (99.79 kg, 165.1 cm) wa1 18:15 Pain Scale: Adult wa1 ED Course: 17:50 Patient arrived in ED. al6 17:55 Rene Reddy DO is Attending Physician. ms3 18:18 Triage completed. me1 18:18 Arm band placed on Patient placed in waiting room. me1 20:04 Inserted saline lock: 20 gauge in left antecubital area, using aseptic technique. Blood mm11 collected. Flushed with 10 mL NS. 20:04 BMP Sent. mm11 20:04 CBC with Diff Sent. mm11 20:30 Attending Physician role handed off by Rene Reddy DO rt 20:30 Lei Griffin MD is Attending Physician. rt 22:42 lab - faxed blood orders. They requested the type and screen to be sent.. kmf 22:55 IV discontinued, intact, bleeding controlled, No redness/swelling at site. Pressure br2 dressing applied. 23:04 Esha Scott RN is Primary Nurse. br2 Administered Medications: No medications were administered Outcome: 22:53 Discharge ordered by . rt 22:55 Discharged to Unknown PT REFUSED TO SIGN DISCHARGE PAPERWORK, br2 22:55 Condition: unchanged 23:04 Patient left the ED. br2 Signatures: Rene Reddy DO DO ms3 Lei Griffin MD MD rt Margie Middleton RN RN me1 Hue De Jesus [facility] Esha Scott RN RN br2 Shira Guy monty mm11 Corrections: (The following items were deleted from the chart) 11/24 05:32 05:29 Reassessment: br2 br2
--- NOTE | 2024-11-23 22:54 | EDPHYS ---
Physician Documentation [facility] Name: Diane Monsalve Age: 39 yrs Sex: Female : 1985 Arrival Date: 11/23/2024 Time: 17:45 Bed IW1 Private MD: ED Physician Lei Justin HPI: 11/23 18:27 This 39 yrs old Female presents to ER via Ambulatory with complaints of Abnormal Lab ms3 Results, Sore Throat. 18:27 39-year-old female with past medical history of diabetes, hypothyroidism, menorrhagia ms3 presents to the emergency department under direction of her transformation lead for anemia. Patient states her blood was drawn yesterday showing a hemoglobin of 6.8. Patient denies pain. Patient denies any alleviating or inciting factors. Patient also notes she recently has experienced sore throat and bodyaches. Patient is concerned for flu or COVID.. BUNDLE TIER: 18:18 LMP 11/11/2024, unknown me1 Historical: - Allergies: 18:18 No Known Allergies; me1 - PMHx: 18:18 Diabetes - NIDDM; Hypothyroidism; menorragia; me1 - PSHx: 18:18 section; Tonsillectomy; me1 - Immunization history:: Adult Immunizations up to date. - Infectious Disease History:: Denies. - Social history:: Smoking status: Patient denies any tobacco usage or history of. ROS: 18:27 Cardiovascular: Negative for chest pain, and palpitations. Respiratory: Negative for ms3 shortness of breath, cough, wheezing, and pleuritic chest pain, Abdomen/GI: Negative for abdominal pain, nausea, vomiting, diarrhea, and constipation, 18:27 MS/Extremity: Negative for injury and deformity, Skin: Negative for injury, rash, and discoloration, 18:27 Constitutional: Positive for body aches, 18:27 ENT: Positive for sore throat, Exam: 18:27 Constitutional: This is a well developed, well nourished patient who is awake, alert, ms3 and in no acute distress. Cardiovascular: Regular rate and rhythm with a normal S1 and S2. No gallops, murmurs, or rubs. Normal PMI, no JVD. No pulse deficits. Respiratory: Lungs have equal breath sounds bilaterally, clear to auscultation and percussion. No rales, rhonchi or wheezes noted. No increased work of breathing, no retractions or nasal flaring. Abdomen/GI: Soft, non-tender, with normal bowel sounds. No distension or tympany. No guarding or rebound. No evidence of tenderness throughout. 18:27 ENT: Posterior pharynx: swelling, is not appreciated, erythema, that is mild, Postnasal drip, exudate, is not appreciated, Vital Signs: 18:15 BP 107 / 71; Pulse 111; Resp 18; Temp 98.2; Pulse Ox 100% ; Weight 99.79 kg; Height 5 me1 ft. 5 in. ; Pain 6/10; 18:15 Body Mass Index 36.61 (99.79 kg, 165.1 cm) me1 18:15 Pain Scale: Adult me1 MDM: 18:27 Medical Screening Exam initiated ms3 18:27 Differential diagnosis: upper respiratory infection, viral syndrome Flu vs COVID vs ms3 anemia. 20:45 Transition of care: After a detail discussion of the patient's case, care is ms3 transferred to Lei Justin MD. 22:56 Data reviewed: vital signs, nurses notes, lab test result(s). ED course: I assumed care rt at shift change, patient was noted to have a hemoglobin of 6.9. Ordered a blood transfusion. Due to waiting room times, patient left before blood transfusion could be initiated. She left before I was able to discuss risk and benefits.. 02 18:27 Order name: CBC with Diff ms3 11/23 18:27 Order name: BMP; Complete Time: 20:30 ms3 11/23 21:40 Order name: CBC Smear Scan EDMS Administered Medications: No medications were administered Disposition Summary: 11/23/24 22:53 Discharge Ordered Notes: Location: Home rt Problem: an ongoing problem rt Symptoms: are unchanged rt Condition: Stable rt Diagnosis - Anemia, unspecified rt Followup: rt - With: Private Physician - When: 2 - 3 days - Reason: Discharge Instructions: - Discharge Summary Sheet rt - Anemia rt Forms: - Medication Reconciliation Form rt - Antibiotic Education rt - Prescription Opioid Use rt - Patient Portal Instructions rt - Leadership Thank You Letter rt Signatures: Dispatcher [employer] EDMS Rene Reddy DO DO ms3 Lei Justin MD MD rt Eddleman, Margie, RN RN me1
[2024-11-23 23:15] VITALS: BP 107/71; TEMP 98.2; O2SAT 100
== END 2024-11-23 23:04 | disposition home or self-care (01) ==
LOC: ER 17:45
DX: D64.9 Anemia, unspecified (principal); R07.0 Pain in throat
CPT/HCPCS: 36415; 80048; 85025; 99283